=== PATIENT | male | born 1970 | race Caucasian/White ===

== ENCOUNTER 2016-09-29 08:44 | Emergency (ER) | payer MEDICAID ==
--- NOTE | 2016-09-29 09:53 | US ---
CORRECTED ORDER Ultrasound Venous Duplex/Doppler left Leg History: Pain and swelling. Findings: Ultrasound venous duplex and Doppler imaging of the common femoral vein, femoral vein, popliteal vein, calf veins, greater saphenous vein origin, and contralateral common femoral vein demonstrates normal compressibility, color flow, and Doppler flow without deep venous thrombosis. However there is positive intraluminal thrombus distal to the greater saphenous vein origin throughout the greater saphenous vein from the mid thigh through the knee region, consistent with superficial thrombophlebitis. Impression: 1. No deep venous thrombosis left leg. 2. Positive superficial thrombophlebitis in the left greater saphenous vein. Report given to Dr. Garcia at 0950 hour [facility]
--- NOTE | 2016-09-29 10:04 | EDPHY ---
H & P Smoking Status: Current every day smoker Time Seen by Provider: 09/29/16 09:00 HPI/ROS: HPI Lower extremity pain. History of blood clots. 46-year-old male by private vehicle. 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 He has not been on Coumadin for 8 months. He describes the pain as a burning deep ache. He also describes having some associated erythema to the skin over this area. He states also that he recently this morning developed pain in his right medial distal thigh and popliteal area. He also describes this pain is similar to the pain he has had DVTs in the past. ROS: Constitutional: No fever, no chills. No weakness. Eyes: No discharge. No changes in vision. ENT: No sore throat. No nasal congestion or rhinorrhea. Respiratory: No cough. No shortness of breath. Cardiac: No chest pain, no palpitations. Gastrointestinal: No abdominal pain, no vomiting, no diarrhea. Genitourinary: No hematuria. No dysuria or increased frequency with urination. Musculoskeletal: No back pain. No neck pain. As above. Skin: No rashes. Neurological: No headache. No focal weakness or altered sensation. Past medical history: DVTs, multiple orthopedic surgeries, appendectomy. Social history: Here by himself. Physical Exam: General Appearance: Alert, no distress. This patient is responding to questions appropriately and in full sentences. This patient appears well- hydrated and well-nourished. Eyes: Pupils equal and round no pallor or injection. No lid edema, erythema or injection. Left lower extremity exam: Significant for an area of erythema involving the medial aspect of his left mid thigh. There is no significant associated warmth. It is blanching. It is tender on palpation. No palpable cords or masses. The left lower extremity is neurovascularly intact. His muscle compartments of the left thigh are soft. There is no significant asymmetric swelling when compared to the right lower extremity. Right lower extremity exam: He has vague tenderness over the medial aspect of the right distal thigh, medial aspect of the knee and proximal medial calf musculature. No masses. No discoloration. The right lower extremity is neurovascularly intact. Respiratory: There are no retractions, lungs are clear to auscultation with good air movement bilaterally. Cardiovascular: Regular rate and rhythm. No murmur. Gastrointestinal: Abdomen is soft and nontender, no masses, bowel sounds normal. No focal tenderness at McBurney's point. No Blanco sign. Neurological: Motor sensory function is grossly intact. Cranial nerves are normal. Gait is normal. Skin: Warm and dry, no rashes. Musculoskeletal: Neck is supple and nontender. Extremities are symmetrical. All joints range without pain or impingement. Psychiatric: No agitation. No depression. Database: EKG: Imaging: Right lower extremity ultrasound: No DVT but significant for superficial thrombophlebitis right GS V, not as great as the left lower extremity. Results were discussed with staff radiologist Dr. Rogelio Alexander. Left lower extremity ultrasound: No DVT but positive for superficial thrombo phlebitis left GSV. Results were discussed with staff radiologist Dr. Rogelio Alexander. Procedures: Emergency department course: After my evaluation, patient was sent for ultrasound of the left lower extremity. On re-evaluation and after review of left lower extremity ultrasound , explained that his right lower extremity was bothering him also as noted above. Right lower extremity ultrasound will be reviewed. Patient will be started on ibuprofen for treatment of thrombophlebitis of the left lower extremity. 11:30 a.m., patient re-evaluated. Results of both lower extremity ultrasounds discussed. Treatment options discussed. We will start him on high-dose ibuprofen to be given over the next 7-10 days. Plan will be to have him follow up with his primary care physician for re-evaluation and consideration of novel anticoagulant therapy. He is in agreement with this plan. Return to emergency department precautions have been discussed with him. All of his questions were answered. He was discharged in good condition with his father. Differential Diagnosis: The differential diagnosis on this patient includes but is not limited to DVT, thrombophlebitis, cellulitis. This represents a partial list of diagnoses considered. These considerations are based on history, physical exam, past history, reassessment and diagnostic testing. (Jenifer Garcia) Constitutional: Initial Vital Signs Temperature (C) 36.7 C 09/29/16 08:45 Heart Rate 102 H 09/29/16 08:45 Respiratory Rate 18 09/29/16 08:45 Blood Pressure 164/123 H 09/29/16 08:45 O2 Sat (%) 96 09/29/16 08:45 O2 Delivery Mode Room Air Allergies/Adverse Reactions: No Known Allergies Allergy (Unverified 09/29/16 08:45) Home Medications: Medication Instructions Recorded Cozaar 09/29/16 Di Something 09/29/16 Toprol Xl 100 mg (*) 09/29/16 Medical Decision Making Other Provider: This pt's chart is in my sign queue, but I was not involved in the care of this pt. (Nila Carrasquillo) - Data Points Medications Given: Discontinued Medications Ibuprofen (Motrin) 800 mg PO EDNOW ONE Stop: 09/29/16 10:46 Last Admin: 09/29/16 11:00 Dose: 800 mg Departure - Departure Disposition: Home, Routine, Self-Care Clinical Impression: Thrombophlebitis Condition: Good Instructions: Superficial Thrombophlebitis (ED) Additional Instructions: Read and follow provided instructions. Follow-up with your primary care physician in 1-2 days for re-evaluation and consideration of novel anticoagulant therapy. It is very important you follow up with your primary care physician to discuss all options of treatment available and to be re-evaluated. Ibuprofen dosin mg every 6 hours with meals for the next 7-10 days. Return to the emergency department for worsening symptoms, worsening pain, worsening swelling, fever, shortness of breath, worsening discoloration or other serious concerns. Referrals: James Mckeon MD [Medical Doctor] - As per Instructions Marcus Castillo MD [Medical Doctor] - As per Instructions
[2016-09-29] MEDS ORDERED: IBUPROFEN 200 MG TAB PO ONE (10:45)
[2016-09-29 11:46] VITALS: BP 143/91; PULSE 84; RESP 17; TEMP 98.8; O2SAT 94
== END 2016-09-29 11:45 | disposition home or self-care (01) ==
DX: I80.292 Phlebitis and thrombophlebitis of other deep vessels of left lower extremity (principal); F17.200 Nicotine dependence, unspecified, uncomplicated

== ENCOUNTER 2017-09-02 17:07 | Inpatient (IN) | payer MEDICAID ==
[~2017-09-02 17:07] MED LIST: OLANZapine 10 MG/2 ML VIAL ONE
[2017-09-02] MEDS ORDERED: HALOPERIDOL LACT 5 MG/ML INJ IVP ONE (17:10)
[2017-09-02 17:36] LABS: % IMMATURE GRANULYOCYTES 0.2 % (0.0-1.1); ABSOLUTE IMMATURE GRANULOCYTES 0.02 10^3/uL (0.00-0.10); ADD DIFF? NO; ADD MORPH? NO; ADD SCAN? NO; ATYPICAL LYMPHOCYTE FLAG 10 (0-99); FRAGMENT RBC FLAG 0 (0-99); HEMATOCRIT 57.1 % (40.0-51.0); LEFT SHIFT FLG 0 (0-99); LIPEMIA HEMOLYSIS FLAG 90 (0-99); MEAN CELL HEMOGLOBIN 35.4 pg (27.9-34.1); MEAN CELL HEMOGLOBIN CONCENTR. 35.9 g/dL (32.4-36.7); MEAN CELL VOLUME 98.6 fL (81.5-99.8); MEAN PLATELET VOLUME 9.6 fL (8.7-11.7); PLATELET CLUMPS FLAG 0 (0-99); PLATELET COUNT 206 10^3/uL (150-400); RED BLOOD CELL COUNT 5.79 10^6/uL (4.40-6.38); RED CELL DISTRIBUTION WIDTH 14.2 % (11.5-15.2)
[2017-09-02 17:42] LABS: HEMOGLOBIN 20.5 g/dL (13.7-17.5)
[2017-09-02 17:47] LABS: ALANINE AMINOTRANSFERASE 62 IU/L (21-72); ALBUMIN 4.5 g/dL (3.5-5.0); ALKALINE PHOSPHATASE 84 IU/L (38-126); ANION GAP 21 mEq/L (8-16); ASPARTATE AMINOTRANSFERASE 62 IU/L (17-59); BILIRUBIN,TOTAL 0.3 mg/dL (0.1-1.4); CALCIUM 9.2 mg/dL (8.5-10.4); CARBON DIOXIDE 20 mEq/l (22-31); CHLORIDE 111 mEq/L (97-110); CREATININE 1.1 mg/dL (0.7-1.3); GLOMERULAR FILTRATION RATE > 60; GLUCOSE 125 mg/dL (70-100); POTASSIUM 4.3 mEq/L (3.5-5.2); SODIUM 152 mEq/L (134-144)
[2017-09-02 17:59] LABS: ETHANOL SERUM 317 mg/dL (0-10)
--- NOTE | 2017-09-02 18:11 | EDPHY ---
H & P Stated Complaint: M1, ETOH and restrained, self inflicted lac to L forearm Source: Patient Exam Limitations: Intoxication - Personal History Current Tetanus/Diphtheria Vaccine: Unsure - Medical/Surgical History Hx Asthma: No Hx Chronic Respiratory Disease: No Hx Diabetes: No Hx Alcoholism: No Other PMH: PMH- HTN, DVT. PSH- ORTHO, APPY, EAR TUBES, - Social History Smoking Status: Current every day smoker HPI/ROS: HPI: This is a 47-year-old male who presents with Chief Complaint: Alcohol intoxication and laceration of left forearm Location: Body Quality: Alcohol intoxication Duration: Today Signs and Symptoms:+ suicidal ideation, + combativeness, no hallucinations, no paranoia Timing: Sudden Severity: Severe Context: Patient presents via [facility] police and EMS for alcohol intoxication and using a 10 blade scalpel to intentionally cut his left forearm to cause physical harm. Please were called to the patient's place of residence by his roommate. Patient's roommate and brother were and his resident trying to talk him down and physically trying to stop and from further harming himself. Please had to tackle him and restrain him to prevent him from causing further harm to himself. On route EMS gave 10 mg of IM Versed. Patient is combative, physically aggressive and verbally yelling. He admits to wanting to kill myself and no longer wanting to live. He admits to drinking large amounts of alcohol today. He has a history of PTSD and DVT. Denies being on any blood thinners at this time. Right-hand dominant. Unsure of last tetanus shot. Modifying Factors: See above Comment: ROS: Limited due to intoxication MEDICAL/SURGICAL/SOCIAL HISTORY: PMH- HTN, DVT PSH- ORTHO, APPY, EAR TUBES Social history: Lives with a roommate. CONSTITUTIONAL: Combative, intoxicated, smells heavily of alcohol, obese adult white male, awake and alert, no obvious distress HEENT: Atraumatic and normocephalic, PERRL, EOMI. no globe entrapment, no raccoon eyes. no [place] signs.Tympanic membranes clear. No tympanic membrane rupture. Nares patent; no septal hematoma. Oropharynx clear, no exudate and moist pink mucosa. No malocclusion. no dental trauma. Airway patent. No lymphadenopathy. NECK: supple, no midline tenderness, flexion 45 degrees, extension 45 degrees, right and left lateral flexion 45 degrees. No meningismus. Cardiovascular: Normal S1/S2, regular rate, regular rhythm, without murmur rub or gallop. PULMONARY/CHEST: Symmetrical and nontender. no crepitus. Clear to auscultation bilaterally. Good air movement. No accessory muscle usage. ABDOMEN: Soft, nondistended, nontender, no ecchymosis, no rebound, no guarding , no peritoneal signs, no masses or organomegaly. No CVAT. PELVIC: no pain with rocking; bilateral hips flexion 125 degrees, extension 30 degrees, with no pain internal rotation and no pain external rotation. BACK: No midline tenderness, no paraspinous spasm, deep tendon reflexes 2/2, no pain with straight leg raise EXTREMITIES: 2/2 radial pulses, 14 cm deep, vertical, laceration from left wrist to mid forearm; volar aspect; muscle exposed. Three small no deformities , no clubbing, no cyanosis or edema. NEUROLOGICAL: no focal neuro deficits. GCS 15. SKIN: Warm and dry, multiple tattoos no erythema. no rash. Good capillary refill. PSYCH: Mumbling, shouting profanities, disorganized thought process, poor insight and judgment, no auditory and visual command hallucinations, + suicidal ideation with attempt, no homicidal ideation, not paranoid ([place]) Constitutional: Initial Vital Signs Temperature (C) 36.6 C 09/02/17 17:10 Heart Rate 130 H 09/02/17 17:10 Respiratory Rate 20 09/02/17 17:10 Blood Pressure 126/87 H 09/02/17 17:10 O2 Sat (%) 99 09/02/17 17:10 O2 Delivery Mode Room Air O2 (L/minute) 3 Allergies/Adverse Reactions: No Known Allergies Allergy (Unverified 09/29/16 08:45) Home Medications: Medication Instructions Recorded Cozaar 09/29/16 Di Something 09/29/16 Toprol Xl 100 mg (*) 09/29/16 Medical Decision Making Procedures: Procedure: Laceration repair. Verbal consent was obtained from the patient. The 14 cm deep, complex laceration on the left forearm was anesthetized in the usual fashion. The wound was irrigated, draped and explored to its base with a gloved finger. There were no deep structures involved. No tendon injury was identified. The wound repair was 2 layer closure; Vicryl used for deep layer and #21, 4-0 Prolene on top layer. Good hemostasis was achieved and patient tolerated procedure well. The procedure was performed by myself. (Kaitlyn Kumar) ED Course/Re-evaluation: This patient was seen and examined by me on arrival. He presents with extreme combativeness and agitation. He received Versed 10 mg IM prior to arrival. Haldol 10 mg IV given. He was placed in 4 point restraints. He gradually calmed down over approximately 10 min. He maintained his airway and oxygen saturation throughout. Chest CTA, CV regular tachycardia. I agree with the assessment and plan. (Nila Carrasquillo) Labs, UDS ordered [facility] police placed M1 on patient as he is found to be gravely disabled and a danger to himself and others. I agree with this assessment. Placed in 4 point restraints for the safety of himself and others as patient was physically aggressive, trying to lunge and physically harm staff, agitated. He was given 10 mg IV Haldol upon arrival per Dr. Carrasquillo. He immediately calm down. Complex laceration was repaired, clean sterile dressing applied. ETOH 317 2054: Due to lab abnormalities upon arrival; repeat CBC and CMP ordered. Patient was re-evaluated and more calm and cooperative. 2149: Reassessed patient. Sleeping soundly. Repeat labs show improvement. UDS is positive for marijuana and cocaine. 0008: End of shift. Signed over to Dr. Rand. Pending mental health evaluation and final disposition. Patient will need his sutures removed in 10- 14 days. (Kaitlyn Kumar) Differential Diagnosis: Differential diagnosis includes but is not limited to functional in situational depression, suicidal ideation, schizoaffective disorder, bipolar disorder, alcohol intoxication, delirium. (Kaitlyn Kumar) - Data Points Laboratory Results: Laboratory Results 09/02/17 20:57 09/02/17 20:57 09/02/17 09/02/17 09/02/17 21:09 20:57 20:57 WBC 6.04 10^3/uL 10^3/uL (3.80-9.50) RBC 5.21 10^6/uL 10^6/uL (4.40-6.38) Hgb 18.3 g/dL H g/dL (13.7-17.5) Hct 51.8 % H % (40.0-51.0) MCV 99.4 fL fL (81.5-99.8) MCH 35.1 pg H pg (27.9-34.1) MCHC 35.3 g/dL g/dL (32.4-36.7) RDW 14.2 % % (11.5-15.2) Plt Count 154 10^3/uL D 10^3/uL (150-400) MPV 9.7 fL fL (8.7-11.7) Neut % (Auto) 47.4 % % (39.3-74.2) Lymph % (Auto) 43.4 % % (15.0-45.0) Cowley % (Auto) 7.0 % % (4.5-13.0) Eos % (Auto) 1.2 % % (0.6-7.6) Baso % (Auto) 0.8 % % (0.3-1.7) Nucleat RBC Rel Count 0.0 % % (0.0-0.2) Absolute Neuts (auto) 2.87 10^3/uL 10^3/uL (1.70-6.50) Absolute Lymphs (auto) 2.62 10^3/uL 10^3/uL (1.00-3.00) Absolute Monos (auto) 0.42 10^3/uL 10^3/uL (0.30-0.80) Absolute Eos (auto) 0.07 10^3/uL 10^3/uL (0.03-0.40) Absolute Basos (auto) 0.05 10^3/uL 10^3/uL (0.02-0.10) Absolute Nucleated RBC 0.00 10^3/uL 10^3/uL (0-0.01) Immature Gran % 0.2 % % (0.0-1.1) Immature Gran # 0.01 10^3/uL 10^3/uL (0.00-0.10) PT INR Sodium 147 mEq/L H mEq/L (134-144) Potassium 4.1 mEq/L mEq/L (3.5-5.2) Chloride 111 mEq/L H mEq/L (97-110) Carbon Dioxide 19 mEq/l L mEq/l (22-31) Anion Gap 17 mEq/L H mEq/L (8-16) BUN 5 mg/dL L mg/dL (7-23) Creatinine 0.9 mg/dL mg/dL (0.7-1.3) Estimated GFR > 60 Glucose 111 mg/dL H mg/dL (70-100) Calcium 8.2 mg/dL L mg/dL (8.5-10.4) Total Bilirubin 0.2 mg/dL mg/dL (0.1-1.4) AST 50 IU/L IU/L (17-59) ALT 52 IU/L IU/L (21-72) Alkaline Phosphatase 67 IU/L IU/L (38-126) Total Protein 6.4 g/dL g/dL (6.3-8.2) Albumin 3.6 g/dL g/dL (3.5-5.0) Urine Opiates Screen NEGATIVE (NEGATIVE) Urine Barbiturates NEGATIVE (NEGATIVE) Ur Phencyclidine Scrn NEGATIVE (NEGATIVE) Ur Amphetamine Screen NEGATIVE (NEGATIVE) U Benzodiazepines Scrn NEGATIVE (NEGATIVE) Urine Cocaine Screen NON-NEGATIVE H (NEGATIVE) U Marijuana (THC) Screen NON-NEGATIVE H (NEGATIVE) Ethyl Alcohol 09/02/17 09/02/17 09/02/17 18:55 17:25 17:25 WBC 9.01 10^3/uL 10^3/uL (3.80-9.50) RBC 5.79 10^6/uL 10^6/uL (4.40-6.38) Hgb 20.5 g/dL H* g/dL (13.7-17.5) Hct 57.1 % H % (40.0-51.0) MCV 98.6 fL fL (81.5-99.8) MCH 35.4 pg H pg (27.9-34.1) MCHC 35.9 g/dL g/dL (32.4-36.7) RDW 14.2 % % (11.5-15.2) Plt Count 206 10^3/uL 10^3/uL (150-400) MPV 9.6 fL fL (8.7-11.7) Neut % (Auto) 30.0 % L % (39.3-74.2) Lymph % (Auto) 58.4 % H % (15.0-45.0) Cowley % (Auto) 8.3 % % (4.5-13.0) Eos % (Auto) 1.9 % % (0.6-7.6) Baso % (Auto) 1.2 % % (0.3-1.7) Nucleat RBC Rel Count 0.0 % % (0.0-0.2) Absolute Neuts (auto) 2.70 10^3/uL 10^3/uL (1.70-6.50) Absolute Lymphs (auto) 5.26 10^3/uL H 10^3/uL (1.00-3.00) Absolute Monos (auto) 0.75 10^3/uL 10^3/uL (0.30-0.80) Absolute Eos (auto) 0.17 10^3/uL 10^3/uL (0.03-0.40) Absolute Basos (auto) 0.11 10^3/uL H 10^3/uL (0.02-0.10) Absolute Nucleated RBC 0.00 10^3/uL 10^3/uL (0-0.01) Immature Gran % 0.2 % % (0.0-1.1) Immature Gran # 0.02 10^3/uL 10^3/uL (0.00-0.10) PT 14.0 SEC SEC (12.0-15.0) INR 1.06 (0.83-1.16) Sodium 152 mEq/L H mEq/L (134-144) Potassium 4.3 mEq/L mEq/L (3.5-5.2) Chloride 111 mEq/L H mEq/L (97-110) Carbon Dioxide 20 mEq/l L mEq/l (22-31) Anion Gap 21 mEq/L H mEq/L (8-16) BUN 5 mg/dL L mg/dL (7-23) Creatinine 1.1 mg/dL mg/dL (0.7-1.3) Estimated GFR > 60 Glucose 125 mg/dL H mg/dL (70-100) Calcium 9.2 mg/dL mg/dL (8.5-10.4) Total Bilirubin 0.3 mg/dL mg/dL (0.1-1.4) AST 62 IU/L H IU/L (17-59) ALT 62 IU/L IU/L (21-72) Alkaline Phosphatase 84 IU/L IU/L (38-126) Total Protein 8.0 g/dL g/dL (6.3-8.2) Albumin 4.5 g/dL g/dL (3.5-5.0) Urine Opiates Screen Urine Barbiturates Ur Phencyclidine Scrn Ur Amphetamine Screen U Benzodiazepines Scrn Urine Cocaine Screen U Marijuana (THC) Screen Ethyl Alcohol 317 mg/dL H mg/dL (0-10) Medications Given: Discontinued Medications Diphtheria/Tetanus/Acell Pertussis (Boostrix) 0.5 ml IM .ONCE ONE Stop: 09/02/17 18:30 Last Admin: 09/02/17 18:46 Dose: 0.5 ml Haloperidol Lactate (Haldol Injection) 10 mg IVP EDNOW ONE Stop: 09/02/17 17:11 Last Admin: 09/02/17 17:10 Dose: 10 mg Departure - Departure Clinical Impression: Suicide attempt by method other than substance overdose, Polysubstance abuse Alcohol intoxication Qualifiers: Complication of substance-induced condition: uncomplicated Qualified Code(s): F10.920 - Alcohol use, unspecified with intoxication, uncomplicated Laceration of forearm, left, complicated Qualifiers: Encounter type: initial encounter Qualified Code(s): S51.812A - Laceration without foreign body of left forearm, initial encounter Condition: Fair
[2017-09-02] MEDS ORDERED: TDAP ADULT 0.5 ML INJ (BOOSTRIX) IM ONE (18:29)
[2017-09-02 19:18] LABS: INR 1.06 (0.83-1.16)
[2017-09-02 21:06] LABS: % IMMATURE GRANULYOCYTES 0.2 % (0.0-1.1); ABSOLUTE IMMATURE GRANULOCYTES 0.01 10^3/uL (0.00-0.10); ADD DIFF? NO; ADD MORPH? NO; ADD SCAN? NO; ATYPICAL LYMPHOCYTE FLAG 0 (0-99); FRAGMENT RBC FLAG 0 (0-99); HEMATOCRIT 51.8 % (40.0-51.0); HEMOGLOBIN 18.3 g/dL (13.7-17.5); LEFT SHIFT FLG 0 (0-99); LIPEMIA HEMOLYSIS FLAG 90 (0-99); MEAN CELL HEMOGLOBIN 35.1 pg (27.9-34.1); MEAN CELL HEMOGLOBIN CONCENTR. 35.3 g/dL (32.4-36.7); MEAN CELL VOLUME 99.4 fL (81.5-99.8); MEAN PLATELET VOLUME 9.7 fL (8.7-11.7); PLATELET CLUMPS FLAG 0 (0-99); PLATELET COUNT 154 10^3/uL (150-400); RED BLOOD CELL COUNT 5.21 10^6/uL (4.40-6.38); RED CELL DISTRIBUTION WIDTH 14.2 % (11.5-15.2)
[2017-09-02 21:22] LABS: ALANINE AMINOTRANSFERASE 52 IU/L (21-72); ALBUMIN 3.6 g/dL (3.5-5.0); ALKALINE PHOSPHATASE 67 IU/L (38-126); ANION GAP 17 mEq/L (8-16); ASPARTATE AMINOTRANSFERASE 50 IU/L (17-59); BILIRUBIN,TOTAL 0.2 mg/dL (0.1-1.4); CALCIUM 8.2 mg/dL (8.5-10.4); CARBON DIOXIDE 19 mEq/l (22-31); CHLORIDE 111 mEq/L (97-110); CREATININE 0.9 mg/dL (0.7-1.3); GLOMERULAR FILTRATION RATE > 60; GLUCOSE 111 mg/dL (70-100); POTASSIUM 4.1 mEq/L (3.5-5.2); SODIUM 147 mEq/L (134-144); TOTAL PROTEIN 6.4 g/dL (6.3-8.2)
[2017-09-03] MEDS ORDERED: LORazepam 1 MG TAB PO ONE (03:13)
[2017-09-03] MEDS ORDERED: IBUPROFEN 600 MG TAB PO ONE (08:52)
[2017-09-03] MEDS ORDERED: chlordiazePOXIDE 25 MG CAP PO ONE (12:55)
[2017-09-03] MEDS ORDERED: THIAMINE HCL 100 MG TAB PO ONE ×2 (12:55→14:11)
[2017-09-03] MEDS ORDERED: chlordiazePOXIDE 25 MG CAP PO PRN (14:11)
[2017-09-03] MEDS ORDERED: MAGNESIUM HYDROXIDE 30 ML UDCUP PO PRN (14:11)
[2017-09-03] MEDS ORDERED: MAG HYDROX/AL HYDROX/SIMETH 30 ML UDCUP PO PRN ×2 (14:11)
[2017-09-03] MEDS ORDERED: NICOTINE POLACRILEX 2 MG GUM B PRN (14:11)
[2017-09-03] MEDS: IBUPROFEN 200 MG TAB PO PRN (17:13)
[2017-09-03] MEDS: OLANZapine DISINTEGR 10 MG TAB PO PRN (18:15)
[2017-09-04] MEDS: IBUPROFEN 200 MG TAB PO PRN ×2 (06:35→12:41)
[2017-09-04] MEDS: THIAMINE HCL 100 MG TAB PO SCH (08:44)
[2017-09-04] MEDS: MULTIVITAMINS 1 EACH TAB PO SCH (08:44)
[2017-09-04] MEDS: FOLIC ACID 1 MG TAB PO SCH (08:44)
[2017-09-04] MEDS: SERTRALINE HCL 50 MG TAB PO SCH (09:17)
--- NOTE | 2017-09-04 09:50 | BAPA ---
[f rep st] ADMISSION PSYCHIATRIC ASSESSMENT IDENTIFICATION: This is a 47-year-old white male who lives with a roommate in a trailer here in [place]. He has 2 sons that live with his ex- in [place]. The patient is currently unemployed and receiving short-term disability from a former employer. The patient is on probation in [facility] for 2 DUIs. CHIEF COMPLAINT: "I feel much better today." HISTORY OF PRESENT ILLNESS: The patient reports a history of recurrent depression, including anhedonia, low energy, low activity, irritability, and feeling hopeless and overwhelmed for many years. He reports that he took Zoloft and Wellbutrin for approximately 3 years, but stopped taking these medications about 4 months ago. He reports that since then he has been more depressed, hopeless, down, and sad. He reports that he had been sober from alcohol for 3-4 months, but then relapsed on alcohol about a month ago. He says he also smokes cannabis daily for chronic shoulder pain. He reports, in the past month, binge drinking 3-4 nights a week. On September 02, 2017, he had been drinking and cut his left arm with a razor blade while having suicidal thoughts. He did this at home and this was observed by his roommate. His roommate called paramedics and he was taken to the emergency department. In the emergency department the patient was on an M1 hold. He was intoxicated with alcohol, combative, required restraints, and received IM Haldol to calm down. He received 21 sutures in his left arm. He had a blood alcohol level in the emergency department of 317. The patient's urine drug screen was positive for cannabis and cocaine. The patient in the emergency room denied any cocaine use, but reported daily cannabis use. After the patient sobered up in the emergency department, he was evaluated by the [facility] team. He reported continued depression with suicidal thoughts and was then admitted to the inpatient psychiatric unit yesterday, September 03, 2017. In the emergency department the patient had borderline hypertension, but did not score on the CIWA scale. He was given thiamine, 1 dose of Ativan, and 1 dose of Librium 25 mg for anxiety and hypertension. Otherwise, he denied symptoms of alcohol withdrawal. The patient reports, currently this morning, feeling much improved. He reports that he does not feel suicidal and does not feel that he is an imminent danger to himself. He reports that his depression is chronic, but it was worsened on September 02, 2017, following alcohol bingeing. He reports that he does not have any current plan to hurt himself. He denies any plans to hurt others. He denies paranoia or hallucinations. He denies any history of sustained hyperactivity, sustained decreased need for sleep, racing thoughts, or severe agitation when sober. He reports that he does want to get mental health treatment after discharge and he wants to restart his antidepressants. He reports that he wants to live for his sons who live in [place]. He also wants to live for his brother, sister, and parents who live in [place]. He also reports that he wants to live so that he can attend an SSI hearing on Thursday, September 07, 2017, for his medical disability related to his shoulder surgeries. The patient denies headache, visual changes, or weakness in his arms or legs. He reports some pain around the laceration on his left arm, but he denies any drainage from it. He denies weakness in his hands or legs. He denies feeling unsteady with his ambulation. He denies nausea, vomiting, diarrhea, constipation, or difficulty urinating. He denies hypersensitivity to sound or light. He denies feeling confused or anxious right now. PAST PSYCHIATRIC HISTORY: The patient reports taking Wellbutrin and Zoloft for approximately 3 years, but stopped taking these medications 4 months ago. He denies prior suicide attempts. He denies past psychiatric hospitalizations. He denies any history of violence toward others. He reports 2 past arrests for DUIs, which were alcohol-related. He denies any arrests for violent crimes. He reports that he is currently on probation in [facility] related to the DUIs. He reports taking Antabuse in the past, but having nausea from this medication. He reports daily cannabis use for the past year related to chronic pain in his shoulders. He denies cocaine or stimulant abuse, even though cocaine was found in his urine in the emergency department. [place] he had opioids and sedative prescribed in the past, last March 2017. MEDICATION: He reports he was not taking medications regularly prior to admission. ALLERGIES: No known drug allergies. PAST MEDICAL HISTORY: DVT in his left lower extremity and reports that he was told by previous physicians that he does not need to take aspirin or blood thinners for this as this was over a year ago, history of borderline hypertension and has taken medications for hypertension in the past, but is unsure of the names or dosages, history of appendectomy, and surgeries on both of his shoulders. On September 02, 2017, he had a self-inflicted laceration on his left upper extremity requiring 21 sutures. The patient denies any history of traumatic brain injuries, seizures, or concussions. SOCIAL HISTORY: The patient reports that he was raised by his parents without abuse or neglect. He reports that his childhood was somewhat chaotic as his father changed jobs and the family moved multiple times throughout his childhood. He said he dropped out of 10th grade because he did not like school. 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 He reports that he did this work for many years, but became disabled due to multiple shoulder surgeries and chronic shoulder pain. The patient is and his ex- lives in [place] with his sons, ages 15 and 19. The patient currently lives in a trailer with his roommate Timothy. He reports that he has been getting medical disability payments from his former employer and has an upcoming hearing with social security disability regarding chronic medical disability. FAMILY HISTORY: He reports that his parents are alive and well and his siblings are alive and well. He denies any family history of suicide, substance abuse, or severe mental illness. PHYSICAL EXAMINATION: VITAL SIGNS: Blood pressure is 142/99, heart rate 72, respiratory rate 12, and pulse ox is 98% on room air. MENTAL STATUS EXAM: He is an alert and overweight white male in no acute distress. He is ambulatory, cooperative, and pleasant. He does not have any focal weakness. His speech is regular rate and rhythm with a soft voice. His mood is "better." His affect is restricted. His thoughts are organized. He denies any thoughts to hurt himself or others. He denies any auditory hallucinations or paranoia. He denies any perceptual disturbance. He denies feeling anxious or irritable. His memory is fair. His insight is fair. His judgment is questionable. LABORATORY DATA: In the emergency department the patient had a blood alcohol level of 317 on September 02, 2017 at 1525. His urine tox screen was positive for cannabis and marijuana. His initial sodium was 152, but that improved to 147 in the emergency room on September 02, 2017. On September 02, 2017, he had a potassium of 4.1, creatinine 0.9, glucose 111, and calcium of 8.2. AST was 50, ALT was 52, and alkaline phosphatase was 67. His PT was 14 and INR was 1.06. His white blood cell count is 6.0, hemoglobin is 18.3, and platelet count is 154. In the computer system for old visits, the patient had a TSH of 3.4 on October 01, 2016. His HDL in September of 2016 was 52, LDL was 105, and triglycerides 264. DIAGNOSES: 1. Major depressive disorder, recurrent and severe without psychotic features. 2. Suicidal ideation. 3. Alcohol induced mood disorder with depressive features. 4. Alcohol use disorder, severe. 5. Cannabis use disorder, severe. 6. Legal stressors - probation 7. Financial Stressors 8. Hypertension 9. Self-inflicted laceration to left upper extremity with sutures 10. Overweight ASSESSMENT: This patient has chronic major depressive disorder symptoms and had been off his antidepressants for 3 months. He reports that he had been sober from alcohol for 3-4 months and then relapsed on alcohol a month ago. He has been binge drinking several days a week for the past month. He has also been using cannabis daily for chronic pain. The patient has a large self- inflicted laceration on his left upper extremity requiring 21 sutures while intoxicated with alcohol. The patient is now sober and reports chronic depressive symptoms, but denies further suicidal ideation. The patient has a significant history of alcohol use disorder with a history of 2 DUIs as well as relationship problems with his ex- related to alcohol. PLAN: 1. The patient is on an M1 hold that expires tomorrow, September 05, 2017 around 1700 hours. The patient reports that he does not want to stay in the hospital, however, considering the severity of his self-inflicted injury and his history of recurrent depression, it is unclear if this is a consistent report. Therefore, the patient will stay in the hospital tonight and be re- evaluated tomorrow to clarify if the patient needs further inpatient psychiatric hospitalization. 2. We will restart the patient's Zoloft 50 mg p.o. every morning. I discussed the risk of nausea, diarrhea, agitation, suicidal thinking, and bipolar symptoms with Zoloft as well as the risk of GI bleed. 3. The patient is agreeable to start naltrexone for alcohol cravings and alcohol use disorder. The patient was given a handout on this medication. We reviewed the risks of blockade of opiate receptors, blockade of opioid medications, and the risk of nausea and hepatitis. We will start 50 mg p.o. every night with food. 4. We will monitor the patient for alcohol withdrawal over the next 24 hours. The patient is currently on the CIWA scale every 4 hours while awake. He received thiamine in the emergency room and will receive thiamine here on the unit daily along with folic acid. If the patient scores above 10 on the CIWA scale, he will receive Librium 25 mg p.r.n. 5. I requested that the career information specialist get release information for the patient's roommate to clarify if the patient has a history of making suicidal statements or self-harming behaviors when he is sober from alcohol. 6. The patient reports that he wants to be discharged prior to his SSI hearing on September 07, 2017 at 11AM in [place]. 7. We will monitor the patient's hypertension on the unit. The patient previously was on high blood pressure medicines, but we will monitor this along with the CIWA rating scale on the unit. Patient will be seen by the hospitalist today. 8. The patient will need to be referred to a primary care doctor to have his sutures removed in 10-14 days and to follow up on his blood pressure. 9. The patient may have borderline hyperglycemia and will need to have his blood sugar rechecked in a month by a primary care provider. 10. The patient is on SP1 suicide precautions on the unit. 11. The patient is overweight and at high risk for sleep apnea. The patient should probably have a sleep study on an outpatient basis after discharge. /[id number]/MODL MTDD
--- NOTE | 2017-09-04 13:51 | BCON ---
[f rep st] BEHAVIORAL HEALTH CONSULTATION INTERNAL MEDICINE CONSULTATION REFERRING PHYSICIAN: SAÚL GILL MD REASON FOR REFERRAL: Medical clearance for inpatient behavioral health stay. HISTORY OF PRESENT ILLNESS: This patient was brought into the emergency department by police. Police had been called by his roommate after he had lacerated his left wrist with a #10 scalpel blade. He was intoxicated and needed to be restrained. In the emergency department, after being treated with midazolam and haloperidol, the laceration was repaired. He was evaluated by the mental health team and admitted for further psychiatric care. He is currently without any acute complaints. He reports that pain in the left forearm is adequately controlled with ibuprofen. PAST MEDICAL HISTORY: 1. Hypertension. 2. Superficial thrombosis of the left calf. 3. Depression. PAST SURGICAL HISTORY: He has had 2 surgeries on his left shoulder and 1 on the right shoulder. MEDICATIONS: Prior to admission, he was not taking any medications. He had previously been on a medication for hypertension, he believes it was Diovan, as well as on medications for depression. ALLERGIES: There are no known drug allergies. SOCIAL HISTORY: He is . His and 2 school-age children live in [place]. He lives with a roommate in a trailer. He has had DUIs x2 and no longer drives and reports that he walks and takes the bus. He is a smoker but not since he came to the emergency department. He has been a polysubstance abuser with toxicology laboratories in the emergency department positive for ethyl alcohol in the serum and cocaine and marijuana in the urine. 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 FAMILY HISTORY: Noncontributory. He denies any significant family medical history. REVIEW OF SYSTEMS: He denies current symptoms of withdrawal, including no sweats, no shakes, no flu-like symptoms. He reports he had been losing some weight and not eating very much because of his depression, but currently has a good appetite. He does not feel acutely thirsty. He is not in pain other than mild in the left forearm, and otherwise a 10-point review of systems is negative. PHYSICAL EXAM: VITAL SIGNS: Blood pressure is 166/107, it has been quite variable; yesterday evening it was 107/70, but overall, other than that single reading, it has always been in the hypertensive range either diastolic or systolic and as high as 183/111. Pulse is 70, respiratory rate is 12, oxygen saturation is 96% on room air, temperature is 36.6 degrees centigrade. His weight is 131.5 kg for a body mass index of 37. GENERAL: This is an obese man, sitting at a table, cooperative and in no acute distress. HEENT: Extraocular movements are intact. Pupils are equal, round, reactive to light. Mucous membranes are moist. He has halitosis. Dentition is in good condition. NECK: Supple. HEART: There is a regular rate and rhythm with no murmurs, rubs, or gallops. LUNGS: Clear to auscultation bilaterally. ABDOMEN: Benign. EXTREMITIES: There is no cyanosis, clubbing, or edema. NEUROLOGIC: He is alert and oriented x3. Cranial nerves 2-12 are grossly intact. There is no focal weakness and sensation is intact to light touch. SKIN: His left forearm has approximately a 25 cm laceration which is sutured, is clean, dry and intact with minimal serous drainage on the bandage. There is no erythema. LABORATORY STUDIES: From the emergency department: CBC was checked twice, the first time there was considerable hemoconcentration with a hemoglobin of 20.5 and hematocrit of 57.1 on 08/23/2017. Several hours later after hydration, his hemoglobin was still elevated at 18.3 with the upper limit of normal being 17.5 , hematocrit of 51.8, with the upper limit of normal being 51. Coagulation studies revealed normal PT and INR. Serum chemistry showed hypernatremia when first tested on 09/02 with a sodium of 152. He had an anion gap of 21 with a low carbon dioxide at 20. Glucose was elevated at 125 but this was likely not fasting. AST was mildly elevated at 62. Several hours later after hydration, his sodium had improved to 147. Anion gap had reduced to 17. Glucose was still high at 111 and otherwise renal function and electrolytes were overall within normal limits. Toxicology screen in the serum revealed an ethyl alcohol level of 317, and the urine was non-negative for cocaine and marijuana but otherwise negative for substances of abuse. ASSESSMENT AND RECOMMENDATIONS: 1. Mental health issues pending further evaluation and management per Psychiatry and the mental health team follow. 2. Self-induced laceration of the left forearm. This has been sutured and appears to be healing well. There is no mention in the emergency department note regarding followup. It is likely the sutures can be removed at approximately 10 days. He should follow up with the primary care provider if he can be established. Otherwise, most likely followup will be at the emergency department for reassessment and suture removal. 3. Hypertension. He most likely was taking valsartan. Given his widely variable blood pressure, which may early on have had a component of either sympathetic discharge from acute distress or alcohol withdrawal and his one reading on the low side of normal, I will start valsartan cautiously at a low dose of 40 mg p.o. b.i.d., monitor blood pressures and adjust as needed. He can also follow up with a primary care provider. 4. Obesity. Advise caution regarding medications which might worsen weight gain, however, his psychosocial stabilization takes first priority at present. 5. Tobacco dependence syndrome. He was encouraged to stop smoking. 6. Alcohol abuse as well as polysubstance abuse. He may benefit from specific substance abuse counseling. 7. Primary prevention. As an obese hypertensive smoker, he is at elevated risk for coronary artery disease. He should see a primary care provider and be sure that his lipids are checked and ensure that his blood sugars are normal. I see no medical contraindications to this patient's continued stay on the inpatient rehabilitation service or to any psychiatric medications or procedures. Thank you very much for including me in the care of this patient and please do not hesitate to contact me or the hospitalist service should there be need for further medical evaluation. /[id number]/MODL MTDD
[2017-09-04] MEDS ORDERED: NALTREXONE HCL 50 MG TAB PO SCH (17:00)
[2017-09-04] MEDS: OLANZapine DISINTEGR 10 MG TAB PO PRN (19:18)
[2017-09-04] MEDS: VALSARTAN 40 MG TAB PO SCH (19:19)
[2017-09-05 05:05] VITALS: TEMP 98.4
[2017-09-05] MEDS: IBUPROFEN 200 MG TAB PO PRN (05:06)
[2017-09-05 08:04] VITALS: PULSE 67
[2017-09-05] MEDS: SERTRALINE HCL 50 MG TAB PO SCH (08:06)
[2017-09-05] MEDS: MULTIVITAMINS 1 EACH TAB PO SCH (08:06)
[2017-09-05] MEDS: VALSARTAN 40 MG TAB PO SCH (08:06)
[2017-09-05] MEDS: FOLIC ACID 1 MG TAB PO SCH (08:06)
[2017-09-05] MEDS: THIAMINE HCL 100 MG TAB PO SCH (08:06)
[2017-09-05 10:02] VITALS: BP 170/104; RESP 18; O2SAT 95
--- NOTE | 2017-09-05 14:27 | BDS ---
[f rep st] BEHAVIORAL HEALTH DISCHARGE SUMMARY REASON FOR ADMISSION: This is a 47-year-old white male, who lives with a roommate. He has 2 sons who live with his ex- in [place]. Patient is currently unemployed and receiving short-term disability. Patient is on probation from [facility] for 2 DUIs. He reports history of recurrent depression, including anhedonia, low energy low activity, irritability, and feeling hopeless and overwhelmed for many years. He reports that he took Zoloft and Wellbutrin for approximately 3 years but stopped taking these medications about 4 months ago. Since then, he says he has been more depressed , hopeless, down, and sad. He had been sober from alcohol for 3-4 months but relapsed about a month ago. He says he also smokes cannabis daily for chronic shoulder pain. He reports in the past month binge drinking 3-4 nights a week. On September 02, he had been drinking and cut his left arm with a razor blade while having suicidal thoughts. He did this at home and was observed by his roommate. His roommate called paramedics, and he was taken to the emergency department. He received 21 sutures in his left arm. He had a blood alcohol level of 317. When Dr. Hernandez met with the patient, the patient reported that he did not feel suicidal and does not feel that he is an imminent danger to himself. He reported that his depression is chronic but is worse when he binge drinks. He reports that he does not have any current plan to harm himself or anyone else. He denies paranoia and hallucinations. He denies any history of bipolar or psychotic symptoms. He reports he does want to get mental health treatment after discharge and wants to restart his antidepressant medications. He also told Dr. Hernandez that he wanted to leave the hospital so that he could attend a Social Security Disability hearing on September 07, for medical disability due to his shoulder injuries. Patient denied any symptoms of withdrawal, including no nausea, vomiting, diarrhea, constipation, difficulty urinating, tremors, night sweats or chills, and no tactile, auditory, or visual hallucinations. ADMITTING DIAGNOSES: 1. Major depressive disorder (recurrent, severe) without psychotic features. 2. Suicidal ideation. 3. Alcohol-induced mood disorder with depressive features. 4. Alcohol-use disorder, severe. 5. Cannabis-use disorder, severe. 6. Psychosocial stressors include legal issues on probation, 2 previous DUI's, financial stressors, hypertension, obesity, self-inflicted laceration to left upper extremity with sutures. Admission physical examination was done by Dr. Wayne Sanchez. Please see his H and P for details. Admission labs were done in the [facility] ED. His BAL was 317 on September 02 at 1525. His urine tox screen was positive for cocaine and marijuana. His initial sodium was 152 but then improved to 147. In the ED, he had potassium of 4.1, creatinine 0.9, glucose 111, calcium 8.2. AST was 50, ALT was 52, alkaline phosphatase was 67. PT was 14, INR was 1.06. White cell count was 6, hemoglobin 18.3, platelet count 154. HOSPITAL COURSE: The patient was admitted to [facility] Inpatient Unit he was placed on CIWA protocol to monitor for alcohol withdrawal. He was administered folic acid, thiamine, and multivitamin. He was restarted on his Zoloft at 50 mg daily. He was also started on naltrexone, to which he gave informed consent, 50 mg daily, and he was prescribed Diovan for dyslipidemia. He had been taking valsartan in the past, and Dr. Sanchez, who is the hospitalist who saw him on 09/04/2017, decided to restart valsartan at a low dose of 40 mg p.o. twice daily, monitor his blood pressure, and have it adjusted on an outpatient basis by his primary care provider. When this MD met with the patient, he continued to deny any thoughts, plans, or intent to hurt himself as he had done since admission. When Dr. Hernandez first saw him, he said that since restarting his Zoloft he felt "much better." He denied feeling depressed or hopeless. He said that he was feeling more positive and optimistic about the future. He was looking forward to going and spending the holidays with his parents and his brother in [place]. He said that he leaves on Thursday, 09/09, and returns on September 23. He said that he had contacted [facility] yesterday to schedule an appointment, but they said they would not be able to make any appointments until after September 16 for sometime in September. So, he said that he would call them from [place] and schedule his first intake appointment with [facility] as soon as possible. This MD met with the patient with life care planner, Sara, who also referred the patient to the [facility] if he needed to get into to see a prescriber sooner than an [facility], so that he could have his prescriptions renewed and did not stop taking his Zoloft. Patient is currently getting outpatient therapy through [facility] in [facility], where he is on probation for his DUI that he had in 2014. He said he started doing twice a week substance-use classes in 2015; he does them here in [place] through the [facility] on [address]. He says that he goes to class 2 hours a week (he has 32 more weeks to complete), and that he also sees an individual therapist who works with the [facility], named David Rodríguez. He states that he started seeing her about a month ago. He sees her once a week for about an hour, but says that he has also been in communication with her via text and phone messages. Patient states that he wants to leave the hospital as soon as possible; does not want to sign himself in voluntarily because he says that he needs to go home and check his messages on his phone, because he is supposed to be getting paperwork together for his manager applied prior to his disability hearing on Thursday at 10: 30 a.m., which is in [place]. He has to ride the bus down there. He says that because his cell phone has been at home, he has not been able to check it while he is in the hospital, and he is getting increasingly nervous about missing phone calls from his manager applied. He says that "I know why this happened," pointing at the laceration and sutures on his arm, and says "this is not going to ever happen again." He says "this is the first time I ever did anything like this." Patient says "I was irritated and upset" because he was not able to see his children. He says "not being able to see my kids at [place] is really hard." He says "if I hadn't been drunk, I would never have done this." He says that he does not plan to relapse anymore, and that he is "done with drinking." He does not feel depressed when he is not drinking, and he says he does not have thoughts about suicide except when he is using alcohol, so that his plan to stay sober is to follow his safety plan, which includes attending an AA meeting on Thursday and going to [facility] on Thursday. He says that he is pretty sure that he can get an appointment with David Rodríguez first thing Thursday, his individual therapist; so he plans to have 3 individual or group appointments now between the time he discharges and the time he gets on the plane to go to [place]. He says it is going to "be really good to be with my family" during the holidays, which are difficult times for him. He recognizes that this is a trigger, and he says that he has "put a plan in place " so that he does not spend the holidays alone. Patient states that he will follow up with [facility] if necessary to bridge him until his first appointment with [facility], and that he will follow up with [facility] to get a prescriber. He does not want to stop taking the Zoloft like he did before, because "that really messed with my mind." He states that he will continue on the Zoloft and will take the medications that he is given at discharge and then follow up with either the [facility] or at [facility] at the 1st available appointment, and he will continue to go to his intervention substance use groups and continue to see his individual therapist, Kamla Rodríguez, once a week. CONDITION AT DISCHARGE: Patient is stable. His affect is euthymic, stable, and inappropriate. He denies any thoughts, plans, or intent to hurt himself or anyone else. He is committed to completing his substance-use treatment, and to getting an outpatient prescriber and staying on medication, DISCHARGE MEDICATIONS: Include Zoloft 50 mg p.o. daily, naltrexone 50 mg p.o. daily, and valsartan 40 mg p.o. b.i.d. He was given a 1-month supply of all those medications with no refills. DISCHARGE DIAGNOSES: 1. Major depressive disorder (recurrent, severe) without psychotic features. 2. Alcohol-induced mood disorder with depressive features. 3. Alcohol-use disorder, severe. 4. Cannabis-use disorder, severe. 5. Psychosocial stressors include legal issues, financial stressors, hypertension, obesity, status post self-inflicted laceration on left upper extremity. DISPOSITION: Patient will be converted from a mental health hold to voluntary status as he does not meet criteria to be involuntary as he does not pose a danger to himself or others and is not gravely disabled. Patient will be discharged home. FOLLOWUP: Patient has an intervention substance use group on Thursday night. Patient was given referrals for local AA groups by the life care planner, Sara. He says that he will attend group on Thursday, Thursday, and Thursday. He says that he will call his individual therapist, Kamla Rodríguez this weekend and is expecting to get in to see her on Thursday. Patient states that he will leave for [place] on Thursday, the , and that he will call from [place] on the , which is the 1st day the P said they would be able to offer him an appointment in September. LEGAL COURSE: Patient was converted to voluntary status prior to the expiration of his M1 hold. /[id number]/MODL MTDD
== END 2017-09-05 13:46 | disposition home or self-care (01) | DRG 885 ==
LOC: EDUNIT# → BBEH 09-03 16:10
PROVIDERS: ATTEND Psychiatry & Neurology Psychiatry
DX: F33.2 Major depressive disorder, recurrent severe without psychotic features (principal); F10.14 Alcohol abuse with alcohol-induced mood disorder; F12.10 Cannabis abuse, uncomplicated; Z73.3 Stress, not elsewhere classified; I10 Essential (primary) hypertension; E66.09 Other obesity due to excess calories; Z68.37 Body mass index [BMI] 37.0-37.9, adult; S41.102D Unspecified open wound of left upper arm, subsequent encounter; F17.210 Nicotine dependence, cigarettes, uncomplicated
CPT/HCPCS: 80305; 96374; G0480

== ENCOUNTER 2017-11-16 08:51 | Inpatient (IN) | payer MEDICAID ==
--- NOTE | 2017-11-16 09:04 | CPEKG ---
Heart Rate: 104 RR Interval: 577 P-R Interval: 168 QRSD Interval: 108 QT Interval: 392 QTC Interval: 516 P [place]: 57 QRS [place]: 91 T Wave [place]: 25 EKG Severity - ABNORMAL ECG - EKG Impression: SINUS TACHYCARDIA EKG Impression: INFERIOR INFARCT, AGE INDETERMINATE EKG Impression: PROLONGED QT INTERVAL Electronically Signed By: Nila Carrasquillo 16-Nov-2017 14:59:40
[2017-11-16] MEDS ORDERED: HYDROmorphONE/DILAUDID 1 MG/ML INJ IVP ONE (09:11)
[2017-11-16] MEDS ORDERED: ONDANSETRON 4 MG/2 ML VIAL IVP ONE (09:11)
[2017-11-16] MEDS ORDERED: NS 1,000 ML IV ONE (09:11)
--- NOTE | 2017-11-16 09:17 | EDPHY ---
H & P Time Seen by Provider: 11/16/17 09:03 HPI/ROS: CHIEF COMPLAINT: Left-sided chest pain, shortness of breath HISTORY OF PRESENT ILLNESS: 47-year-old male with a history of depression and hypertension presents with left-sided chest pain and shortness of breath. Onset of shortness of breath 4 days ago. The shortness of breath increases with exertion and is associated with a mild cough. Left-sided chest discomfort began 3 days ago and is constant and severe. The chest pain increases with supine positioning and deep inspiration. Unable to sleep b/c of pain. Associated with decreased appetite and a few episodes of vomiting. No fever or URI symptoms. History of recent superficial venous thrombosis, but no prior history of DVT. REVIEW OF SYSTEMS: Constitutional: No fever, no chills Eyes: No visual changes ENT: No sore throat Genitourinary: no dysuria Musculoskeletal: No leg pain or swelling Skin: No rash Neurological: No headache, no weakness Psychiatric: depression Past Medical/Surgical History: Hypertension, off medications currently, previously prescribed valsartan 10 mg twice daily Depression Superficial thrombophlebitis Social History: Moderate alcohol use Smoking Status: Light smoker Physical Exam: General Appearance: Alert, appears in pain Eyes: Pupils equal and round, no conjunctival pallor or injection ENT, Mouth: Mucous membranes moist Neck: Normal inspection Respiratory: Few expiratory wheezes Cardiovascular: Regular tachycardia Gastrointestinal: Abdomen is soft, moderate epigastric and left upper quadrant tenderness Neurological: A&O, nonfocal, normal gait Skin: Warm and dry Extremities: Nontender, no pedal edema Psychiatric: Mood and affect normal Constitutional: Initial Vital Signs Temperature (C) 37.1 C 11/16/17 08:56 Heart Rate 105 H 11/16/17 08:56 Respiratory Rate 24 H 11/16/17 08:56 Blood Pressure 176/122 H 11/16/17 08:56 O2 Sat (%) 96 11/16/17 08:56 O2 Delivery Mode Nasal Cannula O2 (L/minute) 2 Allergies/Adverse Reactions: No Known Allergies Allergy (Unverified 09/29/16 08:45) Home Medications: Medication Instructions Recorded Acetaminophen [Tylenol 325mg (*)] 650 mg PO Q4HRS PRN tab 11/18/17 Enoxaparin [Lovenox 150 MG (*)] 130 mg SC BID #20 syr 11/18/17 Sertraline HCl [Zoloft 100mg (*)] 200 mg PO DAILY #60 tab 11/18/17 Valsartan [Diovan (*)] 40 mg PO BID #60 tab 11/18/17 Warfarin Sodium [Coumadin 5MG (*)] 5 mg PO DAILY AT 4PM #30 tab 11/18/17 oxyCODONE IR [Oxycodone Ir (*)] 5 mg PO Q4 PRN #20 tab 11/18/17 Medical Decision Making - Diagnostics EKG Interpretation: EKG interpreted by me reveals sinus tachycardia, rate 104, inferior Q-waves, no ST or T segment changes. Interpretation: Borderline EKG Imaging Results: Imaging Impressions Chest/Thorax CTA 11/16/17 09:46 Impression: 1. Positive pulmonary thromboemboli, moderate volume, predominantly in the left upper and lower lobes. 2. Moderate right pleural effusion and small left pleural effusion. 3. Lingular opacities representing pulmonary infarct versus pneumonia. 4. Right lower lobe 25 x 23 mm pulmonary nodule versus rounded pneumonitis. Recommend follow-up until clear to exclude malignancy. Findings and recommendations discussed with Emergency Department physician, Nila Carrasquillo at 1020 hours, 11/16/2017. Final report concurs with initial preliminary interpretation. A test result has been communicated to a licensed care provider and documented in the [facility] Result system on 11/16/2017 10:32, Message ID [id number]. ADDENDUM: 11/18/17 1230 Impression: 1. Right lower lobe 25 x 23 mm pulmonary nodule is new since February 2016 and, therefore, follow-up CT chest in 3 months is recommended to ensure resolution and exclude malignancy. 2. Moderate right pleural effusion and small left pleural effusion are new. 3. Pulmonary thromboemboli are also acute. ED Course/Re-evaluation: This patient presents with 3 day history of constant left-sided chest pain, shortness of breath and vomiting. Clinical presentation concerning for acute pulmonary embolism, with tachycardia and tachypnea, though he has no risk factors for pulmonary embolism. D-dimer ordered. Stat EKG reveals no evidence of ischemia or dysrhythmia. Labs/CXR ordered. Dilaudid and Zofran IV given for pain control. Multiple doses required to control pain. 9:45 p.m.-D-dimer is elevated at 2.96. CT pulmonary angiogram ordered. CTA reveals moderate volume PE. Results d/w pt. Risks/benefits of anticoagulation discussed and pt agrees with treatment. Heparin per weight- based protocol initiated. The hospitalist was consulted for admission. Ad[facility] to [facility] in stable condition. Critical care time of 35 minutes by me exclusive of unbundled procedures. Time spent in direct contact with patient, ordering of tests and explanations of tests, ordering medications, consultations. Organ at risk: lungs. Differential Diagnosis: Differential diagnosis includes though it is not limited to pneumonia, pneumothorax, pulmonary embolism, aortic dissection, pericarditis, acute coronary syndrome. - Data Points Laboratory Results: Laboratory Results 11/17/17 05:22 11/17/17 05:22 Microbiology Results: MICROBIOLOGY 11/17/17 12:18 Thoracic Fluid - Aspirate Gram Stain - Final 11/17/17 12:18 Thoracic Fluid - Aspirate Body Fluid Culture - Preliminary Medications Given: Discontinued Medications Acetaminophen (Tylenol) 650 mg PO Q4HRS PRN PRN Reason: Pain, Mild/Fever, Can Take PO Stop: 05/15/18 11:21 Last Admin: 11/17/17 21:01 Dose: 650 mg Al Hydroxide/Mg Hydroxide (Maalox Susp) 30 ml PO ONCE ONE Stop: 11/16/17 09:38 Last Admin: 11/16/17 11:30 Dose: Not Given Enoxaparin Sodium (Lovenox) 130 mg SC BID [facility] Stop: 05/16/18 14:44 Last Admin: 11/18/17 08:47 Dose: 130 mg Folic Acid (Folic Acid) 1 mg PO DAILY MEHREEN Stop: 05/15/18 16:44 Last Admin: 11/18/17 08:45 Dose: 1 mg Heparin Sodium (Porcine) (Heparin Injection) 0 unit IVP EDNOW ONE PRN Reason: Protocol Stop: 11/16/17 10:24 Last Admin: 11/16/17 11:05 Dose: 7,000 units Heparin Sodium (Porcine) (Heparin Injection) 0 unit IVP ONCE ONE PRN Reason: Protocol Stop: 11/16/17 12:12 Last Admin: 11/16/17 14:07 Dose: Not Given Heparin Sodium (Porcine) (Heparin Injection) 0 unit IVP PRN PRN; Protocol PRN Reason: Bolus per protocol Stop: 05/15/18 12:10 Last Admin: 11/17/17 02:09 Dose: 2,216 units Hydromorphone HCl (Dilaudid) 0.5 mg IVP EDNOW ONE Stop: 11/16/17 09:12 Last Admin: 11/16/17 09:22 Dose: 0.5 mg Hyoscyamine Sulfate (Levsin, Hyomax-Sl) 0.25 mg PO ONCE ONE Stop: 11/16/17 09:38 Last Admin: 11/16/17 11:29 Dose: Not Given Sodium Chloride (Ns) 1,000 mls @ 0 mls/hr IV EDNOW ONE; Wide Open PRN Reason: Protocol Stop: 11/16/17 09:12 Last Admin: 11/16/17 09:22 Dose: 1,000 mls Heparin Sodium (Porcine) (Heparin 50 Units/Ml (Premix)) 500 mls @ 0 mls/hr IV EDNOW ONE; Per Protocol PRN Reason: Protocol Stop: 11/16/17 10:24 Last Admin: 11/16/17 11:09 Dose: 500 mls Heparin Sodium (Porcine) (Heparin 50 Units/Ml (Premix)) 500 mls @ 0 mls/hr IV CONT MEHREEN; Per Protocol PRN Reason: Protocol Stop: 05/15/18 12:14 Last Admin: 11/17/17 00:10 Dose: 500 mls Thiamine HCl 500 mg/ Sodium (Chloride) 505 mls @ 505 mls/hr IV DAILY MEHREEN Stop: 11/18/17 09:59 Last Admin: 11/17/17 10:15 Dose: Not Given Ketorolac Tromethamine (Toradol) 30 mg IVP Q6HRS PRN PRN Reason: Pain, Inflammatory Stop: 11/21/17 12:10 Last Admin: 11/17/17 05:04 Dose: 30 mg Lidocaine (Lidocaine 2% Viscous) 15 ml PO ONCE ONE Stop: 11/16/17 09:38 Last Admin: 11/16/17 11:30 Dose: Not Given Lorazepam (Ativan) 0 mg PO Q4HRS PRN; Protocol PRN Reason: Alcohol W/D w/ No IV Access Stop: 05/15/18 16:44 Last Admin: 11/17/17 16:32 Dose: 1 mg Lorazepam (Ativan Injection) 2 mg IV ONCE ONE Stop: 11/16/17 18:16 Last Admin: 11/16/17 18:36 Dose: 2 mg Lorazepam (Ativan Injection) 1 mg IVP Q4HRS PRN PRN Reason: Anxiety Stop: 05/15/18 21:02 Last Admin: 11/17/17 00:23 Dose: 1 mg Lorazepam (Ativan) 1 mg PO BID PRN PRN Reason: ANXIETY Stop: 05/16/18 17:36 Last Admin: 11/17/17 21:01 Dose: 1 mg Multivitamins (Tab-A-Devin) 1 each PO DAILY MEHREEN Stop: 05/15/18 16:44 Last Admin: 11/18/17 08:45 Dose: 1 each Ondansetron HCl (Zofran) 4 mg IVP EDNOW ONE Stop: 11/16/17 09:12 Last Admin: 11/16/17 09:21 Dose: 4 mg Oxycodone HCl (Oxycodone Ir) 10 mg PO Q4 PRN PRN Reason: Pain, Severe Able to Take PO Stop: 11/26/17 12:11 Last Admin: 11/18/17 08:42 Dose: 10 mg Sertraline HCl (Zoloft) 200 mg PO DAILY MEHREEN Stop: 05/15/18 16:44 Last Admin: 11/18/17 08:44 Dose: 200 mg Thiamine HCl (Vitamin B-1) 500 mg PO DAILY MEHREEN Stop: 11/18/17 09:01 Last Admin: 11/18/17 08:45 Dose: 500 mg Valsartan (Diovan) 40 mg PO BID MEHREEN Stop: 05/15/18 16:44 Last Admin: 11/18/17 08:45 Dose: 40 mg Warfarin Sodium (Coumadin) 5 mg PO DAILY AT 4PM MEHREEN Stop: 05/16/18 15:59 Last Admin: 11/17/17 16:32 Dose: 5 mg Departure - Departure Disposition: [facility] Acute Clinical Impression: Pulmonary embolism Qualifiers: Pulmonary embolism type: other Chronicity: acute Acute cor pulmonale presence: without acute cor pulmonale Qualified Code(s): I26.99 - Other pulmonary embolism without acute cor pulmonale Condition: Serious
[2017-11-16 09:22] LABS: PLATELET COUNT 220 10^3/uL (150-400)
[2017-11-16] MEDS ORDERED: HYOSCYAMINE SULFATE 0.125 MG TAB PO ONE (09:37)
[2017-11-16] MEDS ORDERED: MAG HYDROX/AL HYDROX/SIMETH 30 ML UDCUP PO ONE (09:37)
[2017-11-16] MEDS ORDERED: LIDOCAINE 2% VISCOUS 15 ML UDCUP PO ONE (09:37)
[2017-11-16] MEDS ORDERED: IOPAMIDOL (ISOVUE 370) 100 ML BTL IV ONE (09:47)
[2017-11-16] MEDS ORDERED: HEPARIN/DEXTROSE 500 ML IV ONE (10:23)
[2017-11-16] MEDS ORDERED: HEPARIN 10,000 UNIT/10 ML MDV (1,000 UNIT/ML) IVP ONE ×2 (10:23→12:11)
[2017-11-16 10:41] LABS: INR 1.01 (0.83-1.16); PROTIME(PATIENT) 13.5 SEC (12.0-15.0)
[2017-11-16] MEDS ORDERED: ONDANSETRON 4 MG/2 ML VIAL IVP PRN (11:22)
[2017-11-16] MEDS ORDERED: ONDANSETRON DISINTEGRATING 4 MG TAB PO PRN (11:22)
[2017-11-16] MEDS ORDERED: HEPARIN/DEXTROSE 500 ML IV SCH (12:15)
[2017-11-16] MEDS: oxyCODONE IR 5 MG TAB PO PRN ×2 (12:31→16:31)
[2017-11-16] MEDS: KETOROLAC 30 MG/1 ML SDV IVP PRN (12:31)
--- NOTE | 2017-11-16 13:29 | GHP ---
[f rep st] HISTORY AND PHYSICAL DATE OF ADMISSION: 11/16/2017 CHIEF COMPLAINT: Pulmonary embolism. PRIMARY LITHOGRAPHERS PRINTER: Dr. Landeros at [facility]. HISTORY OF PRESENT ILLNESS: A 47-year-old male with history of prior left leg DVT, who presented with left-sided chest pain, started Kevin night. He described it as sharp and stabbing. The pain is worse with movement and deep inspiration. It improves with sitting up. He has had a nonproductive cough. No fevers, chills, or sweats. No nausea, vomiting. He had been on Coumadin for 3 months, with a left leg DVT, and he was not clear of the reasoning for the clot. He had an ultrasound done in 2017 here that showed left calf superficial thrombophlebitis. Also, complaining of headache. He has had some dizziness, but no loss of consciousness. REVIEW OF SYSTEMS: PSYCH: Denies HI or SI. I completed a 10-point Review of Systems, negative except as noted in HPI. PAST MEDICAL HISTORY: 1. History of left leg DVT several years ago, he stated, at [facility], but I do not find this in [facility]. 2. Hines esophagus, followed closely with EGDs every [address] Landeros at [facility]. 3. Hypertension. He has been off medications for 2 weeks. 4. Depression, on Zoloft. Sees a counselor. 5. History of prior suicidal attempts. PAST SURGICAL HISTORY: Left shoulder, 2 right shoulder rotator cuff repairs, appendectomy, ear drum surgery, left wrist. Had a colonoscopy last year that was normal. FAMILY HISTORY: No cancer or diabetes. States mom and dad both had clots associated with surgeries. SOCIAL HISTORY: Lives with his brother in [place]. Was a prior otr tanker truck driver. He is on disability due to his shoulders. He smokes 4-5 cigarettes over the last month, but smokes at least a pack to 3 packs a day for 30 years. Alcohol: 6-pack 2-3 times a week. Last drink was yesterday. Denies withdrawal. Medical marijuana at least once daily. MEDICATIONS: Has been off the Zoloft and an antihypertensive for 2 weeks. ALLERGIES: None. PHYSICAL EXAM: VITAL SIGNS: Temperature 37, blood pressure 140/90, heart rate 96 to 118, respirations 18, 97% on 2 L, 90 on room air. GENERAL: Obese male sitting up, uncomfortable, appears to be in pain. HEENT: PERRLA. Moist mucous membranes. CV: Regular rate and rhythm. No murmurs, gallops, rubs. LUNGS: Diminished breath sounds, bilateral bases, greater on the right. GI: Soft, nontender, nondistended. Positive bowel sounds. : No Hauser. MUSCULOSKELETAL: 5/5 upper and lower extremity strength. Left calf with superficial thrombophlebitis. Cording on posterior calf and ankle. NEURO: 2 through 12 intact. PSYCH: Alert and oriented x3. LABS: WBC is 7.76, hemoglobin 17, hematocrit 49, platelets 220. D-dimer is 2.96. INR is 1.01, PT is 13. Sodium 137, potassium 3.7, chloride 103, carbon dioxide 20, anion gap 14, creatinine 0.8, total bilirubin is 1.5, AST 39, ALT is 38, alk phos 114, conjugated 0.6. BNP is 252. EKG is personally reviewed by me. Sinus tachycardia. Poor waveform. Lower extremity ultrasound: Superficial thrombophlebitis in the left calf, greater saphenous vein. CTA: Positive PE. Moderate volume predominantly in the left upper and lower lobes. Moderate right pleural effusion. Small left pleural effusion. Lingular opacities representing infarct versus pneumonia. Right lower lobe 25 x 20 mm pulmonary nodule versus pneumonitis. ASSESSMENT AND PLAN: 1. Acute pulmonary embolism: h/o DVT. U/S today shows superficial thrombophlebitis in left leg. Hemodynamically stable with normal troponin and BNP. Echo without e/o right heart strain. Heparin gtt Given he is on Medicaid , he would prefer for Coumadin for cost constraints. CM to assist with PCP appt 2. Acute chest pain: due to PE. Negative troponin. PRN Toradol and oxycodone. 3. Pleural effusion: suspect due to PE. Has had mild cough, no fevers. NL procalcitonin. May consider thoracentesis tomorrow. 4. Pulmonary nodule. Concern for possible malignancy given significant history. Will treat acute PE and further investigate with repeat imaging. May need biopsy in future. 5. Nicotine abuse. Declines patch. 6. Marijuana use. Uses medical marijuana daily. 7. Alcohol use: last drink yesterday. CIWA, MV/T/F. 8. Depression. Denies suicidal or homicidal ideations. He has been off the Zoloft for 2 weeks. He would benefit from a primary care physician. He does see a counselor weekly. Restart Zoloft 9. Accelerated hypertension: pain and Etoh w/d likely contributing. Restart home Losartan. Will have to obtain normal home medication he takes. Suspect currently some associated with pain. Will re-evaluate. 10. DVT prophylaxis. Heparin drip. 11. Diet: Regular. DISPOSITION: Patient warrants observation given acute pulmonary embolus requiring heparin drip. Echocardiogram and possible thoracentesis. /[id number]/MODL MTDD
--- NOTE | 2017-11-16 14:24 | ECHO ---
[email or web address] [address] [address] Main: [phone] Fax: Transthoracic Echocardiogram Name: SHIRLEY MOSLEY MR#: [id number] Study Date: 11/16/2017 Study Time: 01:43 PM Date of : 1970 Age: 47 year(s) Height: 188 cm (74 in.) Weight: 131.54 kg (290 lb.) BSA: 2.54 m2 Gender: Male Examination: Echo Indication: PE, Pleural Effusion, Eval for right heart strain Image Quality: Contrast: Requested by: Sharon Acosta BP: 154 mmHg/110 mmHg Heart Rate: Rhythm: Tachycardia Indication: PE, Pleural Effusion, Eval for right heart strain Procedure Staff Manager Mechanical: Nilo Presley RDCS Reading Physician: Noble Mcmanus MD Requesting Provider: Conclusions: Normal size left ventricle. No LV hypertrophy. Normal global systolic LV function. EF is 62 %. No regional wall motion abnormality. Diastolic dysfunction is present. . Normal RV function. There is no mitral valve regurgitation. There is no aortic valve regurgitation. There is no tricuspid valve regurgitation. Measurements: Chambers Valvular Assessment AV/MV Valvular Assessment TV/PV Normal Normal Normal Name Value Range Name Value Range Name Value Range Ao Gretchen (MM): 3.8 cm (2.2 cm-3.7 AV Vmax: 1.13 m/s (1 m/s-1.7 PV Vmax: 0.95 m/s (0.6 m/s-0.9 cm) m/s) m/s) IVSd (2D): 1.2 cm (0.6 cm-1.1 AV maxP mmHg ( - ) PV PGmax: 4 mmHg ( - ) cm) LVOT Vmax: 1.08 m/s (0.7 m/s-1.1 LVDd (2D): 5.4 cm (4.2 cm-5.9 m/s) cm) MV E Vmax: 0.67 m/s ( - ) LVDs (2D): 3.6 cm (2.1 cm-4 MV A Vmax: 0.48 m/s ( - ) cm) MV E/A: 1.40 ( - ) LVPWd (2D): 1.3 cm (0.6 cm-1 cm) LVEF (2D): 62 (>=54 %) RVDd(2D): 3.2 cm (1.9 cm-3.8 cmmm) Continued Measurements: Patient: SHIRLEY MOSLEY Study Date: 11/16/2017 Page 1 of 2 01:43 PM Chambers Valvular Assessment AV/MV Name Value Name Value LADs Lon.9 cm MV E/E' Septal: 10.90 LA Area: 13.7 cm2 MV E/E' Lateral: 13.80 LA Volume: 59 ml LA Volume Index: 23.2 ml/m2 Findings: Left Ventricle: Normal size left ventricle. No LV hypertrophy. Normal global systolic LV function. EF is 62 %. No regional wall motion abnormality. Diastolic dysfunction is present. . Right Ventricle: Normal size right ventricle. Normal RV function. Left Atrium: The left atrium is normal in size. Right Atrium: The right atrium is normal in size. Mitral Valve: The mitral valve is normal in appearance and function. There is no mitral valve regurgitation. Aortic Valve: The aortic valve is normal in appearance and function. There is no aortic valve regurgitation. Tricuspid Valve: The tricuspid valve is normal in appearance and function. There is no tricuspid valve regurgitation. Pulmonic Valve: The pulmonic valve is normal in appearance and function. Aorta: The aorta is normal. Pericardium: No pericardial effusion. (No Signature Object) Patient: SHIRLEY MOSLEY Study Date: 11/16/2017 Page 2 of 2 01:43 PM [id number]
--- NOTE | 2017-11-16 16:54 | ASMTCASEMG ---
Living Arrangements What is your living Answers: With Other Relative(s) arrangement? Who do you live with? Type Of Residence What kind of residence do Answers: House you live in? Discharge Plan Comments Coordination Status Comments Notes: Patient requested assistance with getting a PCP. He has gone to Dr. Hortensia Bradford in the past but she does not understand he can only see a therapist or a psychiatrist with Medicaid and not both. Patient needs his psych meds but he sees a therapist, Cesilia Rodríguez in [place] once per week. This has been important to him to have this weekly support through the of his dad, his brother being hospitalized and his own suicide attempt in August. Patient states Dr. Bradford will not prescribe his medication unless he goes to see a psychiatrist but he would then have to give up his therapy appointments. Originally, I made an appointment for him with Dr. Bradford on November 25, 2017 @ 1:15 (13:15) as follow up to his hospital stay. Will reschedule tomorrow with another provider who is comfortable with prescribing patient's psych meds and supporting his remaining in treatment with his therapist. Offices have closed for the day. CM will follow. Date Signed: 11/16/2017 04:53 PM Electronically Signed By:Liz Jonas LCSW
[2017-11-16] MEDS: FOLIC ACID 1 MG TAB PO SCH (17:18)
[2017-11-16] MEDS: SERTRALINE HCL 100 MG TAB PO SCH (17:18)
[2017-11-16] MEDS: THIAMINE HCL 500 MG in NS 500 ML IV SCH (17:18)
[2017-11-16] MEDS: MULTIVITAMINS 1 EACH TAB PO SCH (17:18)
[2017-11-16] MEDS: VALSARTAN 40 MG TAB PO SCH ×2 (17:19→21:50)
[2017-11-16] MEDS ORDERED: LORazepam 1 MG TAB PO PRN (18:08)
[2017-11-16] MEDS ORDERED: LORazepam 2 MG/ML INJ IV ONE (18:15)
[2017-11-16] MEDS: HEPARIN 10,000 UNIT/10 ML MDV (1,000 UNIT/ML) IVP PRN (18:32)
[2017-11-16] MEDS ORDERED: LORazepam 2 MG/ML INJ IVP PRN (21:03)
[2017-11-17] MEDS: oxyCODONE IR 5 MG TAB PO PRN ×5 (00:08→21:01)
[2017-11-17] MEDS: HEPARIN 10,000 UNIT/10 ML MDV (1,000 UNIT/ML) IVP PRN (02:09)
[2017-11-17] MEDS: KETOROLAC 30 MG/1 ML SDV IVP PRN (05:04)
[2017-11-17] MEDS: LORazepam 1 MG TAB PO PRN ×2 (05:16→16:32)
[2017-11-17] MEDS: VALSARTAN 40 MG TAB PO SCH ×2 (09:23→21:02)
[2017-11-17] MEDS: FOLIC ACID 1 MG TAB PO SCH (09:23)
[2017-11-17] MEDS: SERTRALINE HCL 100 MG TAB PO SCH (09:23)
[2017-11-17] MEDS: MULTIVITAMINS 1 EACH TAB PO SCH (09:23)
[2017-11-17] MEDS: THIAMINE HCL 500 MG in NS 500 ML IV SCH (10:15)
[2017-11-17] MEDS ORDERED: LIDOCAINE 1% 300 MG/30 ML SDV ONE (10:26)
[2017-11-17] MEDS: THIAMINE HCL 100 MG TAB PO SCH (10:32)
--- NOTE | 2017-11-17 12:13 | HOSPPROG ---
Hospitalist Progress Note Assessment/Plan: #Acute PE: transition to coumadin with Lovenox bridge today #Symptomatic pleural effusion: R>L. Suspect due to PE. No signs infection, negative procalcitonin -tap for symptom relief, send cytology #RUL nodule: DDx: infarct vs. larger nodule. I personally reviewed [facility] records, and 3mm RRL nodule present then. Discussed with Dr. Trent with Radiology and we agree to obtain OSH imaging to compare. Repeat CT scan in 2 months, if not smaller, then biospy #Nicotine dependence: declined patch #Etoh abuse and withdrawal: minimal BZ needs #Depression: restart Zoloft #HTN: been off meds for 2 weeks. Restart home Valsartan #Acute hypoxic resp failure: to due to effusion, PE. RA challenge after tap #Diet: regular #DVT ppx: heparin gtt #Disp: cont inpatient admission for IV heparin, dizziness and cont pulse ox. If clinically improved, can DC tomorrow Subjective: still very dizzy with standing. Mild SOB, persistent pain on left Objective: Vital Signs Temp Pulse Resp BP Pulse Ox 36.6 C 85 18 144/84 H 92 11/17/17 12:00 11/17/17 12:00 11/17/17 12:00 11/17/17 12:00 11/17/17 12:00 Laboratory Results 11/17/17 05:22 11/17/17 05:22 11/16/17 11/17/17 11/18/17 05:59 05:59 05:59 Intake Total 2729 Output Total 0 Balance 2729 PT 13.5 SEC (12.0-15.0) 11/16/17 09:55 INR 1.01 (0.83-1.16) 11/16/17 09:55 - Time Spent With Patient Time Spent with Patient: greater than 35 minutes Time Spent with Patient: Greater than 35 minutes spent on this patients care, greater than 50% of time spent counseling, educating, and coordinating care regarding the above mentioned plan. - Physical Exam Constitutional: obese Eyes: PERRL Ears, Nose, Mouth, Throat: moist mucous membranes, hearing normal Cardiovascular: regular rate and rhythym, no murmur, rub, or gallop, other (TTP over sternum, MARILOU chest ), No edema Respiratory: no respiratory distress, reduced air movement (BL bases, R>L) Gastrointestinal: normoactive bowel sounds Skin: warm Musculoskeletal: full muscle strength ICD10 Worksheet Patient Problems: Problems Problem Status Onset Alcohol intoxication Acute Laceration of forearm, left, complicated Acute Polysubstance abuse Acute Suicide attempt by method other than substance overdose Acute
--- NOTE | 2017-11-17 15:20 | PDMN ---
Medical Necessity Medical necessity: change to IP; los>2mn for acute PE, w/continued SOB, dizziness and pain, etoh abuse and withdrawal; requires bridging for transition from hep gtt to Lovenox, continuous pulse ox, wean O2 after thoracentesis; per order and progress note 11/17/17
[2017-11-17] MEDS ORDERED: WARFARIN SODIUM 5 MG TAB PO SCH (16:00)
[2017-11-17] MEDS: ENOXAPARIN 150 MG/ML SYR SC SCH ×2 (16:32→21:03)
[2017-11-17] MEDS: ACETAMINOPHEN 325 MG TAB PO PRN ×2 (16:32→21:01)
[2017-11-17] MEDS ORDERED: LORazepam 1 MG TAB PO PRN (17:37)
[2017-11-18] MEDS: oxyCODONE IR 5 MG TAB PO PRN ×2 (04:52→08:42)
[2017-11-18 05:01] LABS: INR 1.08 (0.83-1.16); PROTIME(PATIENT) 14.2 SEC (12.0-15.0)
[2017-11-18 08:36] VITALS: BP 168/105; PULSE 70; RESP 16; TEMP 98.1; O2SAT 94
[2017-11-18] MEDS: SERTRALINE HCL 100 MG TAB PO SCH (08:44)
[2017-11-18] MEDS: FOLIC ACID 1 MG TAB PO SCH (08:45)
[2017-11-18] MEDS: MULTIVITAMINS 1 EACH TAB PO SCH (08:45)
[2017-11-18] MEDS: THIAMINE HCL 100 MG TAB PO SCH (08:45)
[2017-11-18] MEDS: VALSARTAN 40 MG TAB PO SCH (08:45)
[2017-11-18] MEDS: ENOXAPARIN 150 MG/ML SYR SC SCH (08:47)
--- NOTE | 2017-11-18 11:17 | ASDISCHSUM ---
Discharge Information Plan Status: Medically Cleared to Leave: Discharge Date:11/18/2017 11:04 AM CM D/C Disposition: ADT D/C Disposition:Home, Routine, Self-Care Projected Discharge Date:11/18/2017 11:04 AM Transportation at D/C: Discharge Delay Reason: Follow-Up Date:11/18/2017 11:04 AM Discharge Slot: Final Diagnosis: Placement Information Patient Contact Information Contact Name:TRENA Relationship:Father Address: Work Phone: City: [facility] Phone: State/Zip Code: Email: Financial Information Financial Class:Medicaid Primary Plan Desc:[employer] [place] Primary Plan Number:[id number] Secondary Plan Desc: Secondary Plan Number: Assessment Information [facility] Initial CM Assessment Living Arrangements What is your living Answers: With Other Relative(s) arrangement? Who do you live with? Type Of Residence What kind of residence do Answers: House you live in? Discharge Plan Comments Coordination Status Comments Notes: Patient requested assistance with getting a PCP. He has gone to Dr. Hortensia Bradford in the past but she does not understand he can only see a therapist or a psychiatrist with Medicaid and not both. Patient needs his psych meds but he sees a therapist, Cesilia Rodríguez in [place] once per week. This has been important to him to have this weekly support through the of his dad, his brother being hospitalized and his own suicide attempt in August. Patient states Dr. Bradford will not prescribe his medication unless he goes to see a psychiatrist but he would then have to give up his therapy appointments. Originally, I made an appointment for him with Dr. Bradford on November 25, 2017 @ 1:15 (13:15) as follow up to his hospital stay. Will reschedule tomorrow with another provider who is comfortable with prescribing patient's psych meds and supporting his remaining in treatment with his therapist. Offices have closed for the day. CM will follow. Date Signed: 11/16/2017 04:53 PM Electronically Signed By:Liz Jonas LCSW [facility] CM Progress Note CM Note CM Note Notes: Pt ready for DC today. Spoke with pt about need for PCP to do an INR check on Thursday. Pt agreed tp stay with his current MD, Dr Bradford. Dr Acosta wrote a prescripion for pt's zoloft. Pt will find a new PCP who can prescribe if Dr Bradford cannot. Pt had no other DC needs. Date Signed: 11/18/2017 11:16 AM Electronically Signed By:Sarah Buckner LCSW Intervention Information
--- NOTE | 2017-11-18 13:23 | GDS ---
[f rep st] DISCHARGE SUMMARY DISCHARGE DIAGNOSES: 1. Acute pulmonary embolism. 2. Acute hypoxic respiratory failure. 3. Left calf superficial thrombophlebitis. 4. History of left leg deep vein thrombosis. 5. Depression. 6. Hypertension. 7. Alcohol dependence. 8. Right lower lobe nodule. 9. Nicotine dependence. 10. Symptomatic pleural effusion. HISTORY OF PRESENT ILLNESS: A 47-year-old male with history of prior left leg DVT, hypertension, alcohol dependence, presenting with sharp left-sided chest pain that started Kevin night. It was stabbing in nature. Pain was worse with movement and deep inspiration. Improves with sitting up. He has not had fevers, chills, or sweats. No cough. He previously had a left leg clot, he cannot recall the date, and was treated with Coumadin for 3 months. He had an ultrasound done here in 2016 that showed left calf superficial thrombophlebitis. In the emergency room, underwent CTA that demonstrated new left-sided pulmonary embolism. HOSPITAL COURSE BY PROBLEM: 1. Acute pulmonary embolism: He does have a history of left leg clot that had previously been treated. Denied any recent travel. Ultrasound again showed left calf thrombophlebitis. No deep thrombosis. He was initially treated with heparin drip and transitioned to Coumadin and Lovenox bridge. He will follow up with his PCP on Thursday for repeat INR. 2. Symptomatic pleural effusion: This is bilateral, but greater on the right. He was initially requiring oxygen. He underwent therapeutic and diagnostic tap. No evidence of infection. He had negative procalcitonin, gram stain negative. BNP was normal. No malignant cells. 3. Right lower lobe nodule: Upon review of [facility] records, he had a CT in 2016 that showed a 3 mm nodule in the same area. It is now 23 x 20 mm. I did review this with Dr. Trent and Dr. Mcfadden. It could represent infarct, with acute pulmonary embolism. It would be helpful to treat PE, and then repeat scan in 2 months. If not decreased in size, then would recommend biopsy at that time. 4. Nicotine dependence: He declines patch. 5. Alcohol abuse and mild withdrawal here: He had minimal benzo needs. He was counseled on cessation. 6. Depression: Resume Zoloft. 7. Hypertension: He had been off his blood pressures for 2 weeks. Restarted his home valsartan. 8. Acute hypoxic respiratory failure: Secondary to PE and effusion. He is now stable on room air. DISPOSITION: The patient is stable for discharge home. NEW MEDICATIONS: 1. Coumadin 5 mg. 2. Lovenox 130 mg twice daily. 3. Zoloft 200 mg daily. 4. Valsartan 40 mg twice daily. FOLLOWUP: 1. With his primary care physician. 2. Followup INR. 3. Repeat CT scan of chest in 2 months to evaluate right lower lobe nodule. PHYSICAL EXAM: VITAL SIGNS: 147/98, heart rate 63, respiratory 18, 94 on room air. GENERAL: Obese, sitting in bed. No acute distress. HEENT: PERRLA. EOMI. Oropharynx clear. CV: Regular rate and rhythm. No murmurs, gallops, rubs. Does have reproducible left-sided chest pain. LUNGS: Decreased, left greater than right. No crackles or wheezing. ABDOMEN: Soft, nontender, nondistended. Positive bowel sounds. : No Hauser. MUSCULOSKELETAL: 5/5 upper and lower extremity strength. NEUROLOGIC: 2 through 12 intact. PSYCHIATRIC: Alert and oriented x3. Time spent on DC: 45 min coordinating FU PCP with CM, treatment plan with patient /[id number]/MODL KEREN
[2017-11-19] MEDS ORDERED: THIAMINE HCL 100 MG TAB PO SCH (09:00)
== END 2017-11-18 11:04 | disposition home or self-care (01) | DRG 175 ==
LOC: INTOOBSV 10:28 → F1N 11:39 → OBSVTOIN 11-17 14:31
PROVIDERS: ADMIT Internal Medicine; ATTEND Internal Medicine
PROC: 0W993ZX Drainage of Right Pleural Cavity, Percutaneous Approach, Diagnostic (ICD-10-PCS; principal; 2017-11-17)
DX: I26.99 Other pulmonary embolism without acute cor pulmonale (principal); J96.01 Acute respiratory failure with hypoxia; F10.230 Alcohol dependence with withdrawal, uncomplicated; J90 Pleural effusion, not elsewhere classified; I80.02 Phlebitis and thrombophlebitis of superficial vessels of left lower extremity; F32.9 Major depressive disorder, single episode, unspecified; I10 Essential (primary) hypertension; R91.1 Solitary pulmonary nodule; F17.200 Nicotine dependence, unspecified, uncomplicated; K22.70 Barrett's esophagus without dysplasia; Z86.718 Personal history of other venous thrombosis and embolism
CPT/HCPCS: 85520-90; 96374; G0378; J1170; J1644; J1650; J1885; J2060; J2405; J3411; Q9967

== ENCOUNTER 2017-12-02 15:33 | Observation (INO) | payer MEDICAID ==
--- NOTE | 2017-12-02 16:25 | EDPHY ---
H & P Time Seen by Provider: 12/02/17 16:10 HPI/ROS: CHIEF COMPLAINT: Bleeding mouth HISTORY OF PRESENT ILLNESS: The patient is a 47-year-old male with a recent diagnosis of pulmonary embolus, discharge from the hospital on 11/17/2017. He is currently taking Lovenox and warfarin. Since Thursday he has had increased bleeding from his mouth. This is from multiple locations. He states he is unable to sleep because of the amount of blood that is "oozing out."He is not lightheaded or dizzy. He has no chest pain. No new shortness of breath. He is not having any other bruising or bleeding reported. REVIEW OF SYSTEMS: My complete review of systems is negative except as mentioned in the HPI. Past Medical/Surgical History: Includes hypertension, DVT, pulmonary embolus, alcohol dependence, thrombophlebitis, lower lobe nodule, nicotine dependence, pleural effusion Past surgical history: Orthopedic surgery, appendectomy, ear tubes Social history: The patient smokes Smoking Status: Light smoker Physical Exam: 37, 127, 112, 18, 95% on room air GENERAL: Well-appearing, in no acute distress, alert. HEENT: Eyes normal to inspection, no signs of dehydration. The patient has multiple areas of oozing blood in his mouth. This is primarily around his upper dentition. Patient also has is noted to have a lesion on his left cheek. This is dark in appearance and approximately 1 cm in diameter. NECK: [No thyromegaly, no lymphadenopathy, supple. RESPIRATORY: Clear to auscultation bilaterally, no rales, rhonchi or wheezing. CVS: Regular rate and rhythm, no rubs, murmurs, or gallops. ABDOMEN: Soft, nontender, nondistended, no organomegaly. BACK: Normal to inspection, no CVA tenderness. SKIN: Normal color, no rash, warm, dry. No pallor. No petechiae EXTREMITIES: No pedal edema, no calf tenderness, no Homans sign or cords, no joint swelling. NEURO/PSYCH: Alert and oriented x3, normal mood and affect, normal motor sensory exam. Constitutional: Initial Vital Signs Temperature (C) 37 C 12/02/17 15:49 Heart Rate 112 H 12/02/17 15:49 Respiratory Rate 18 12/02/17 15:49 Blood Pressure 112/97 H 12/02/17 15:49 O2 Sat (%) 95 12/02/17 15:49 O2 Delivery Mode Room Air Allergies/Adverse Reactions: No Known Allergies Allergy (Verified 12/02/17 15:48) Home Medications: Medication Instructions Recorded Acetaminophen [Tylenol 325mg (*)] 650 mg PO Q4HRS PRN tab 11/18/17 Enoxaparin [Lovenox 150 MG (*)] 130 mg SC BID #20 syr 11/18/17 Sertraline HCl [Zoloft 100mg (*)] 200 mg PO DAILY #60 tab 11/18/17 Valsartan [Diovan (*)] 40 mg PO BID #60 tab 11/18/17 Warfarin Sodium [Coumadin 5MG (*)] 5 mg PO DAILY AT 4PM #30 tab 11/18/17 oxyCODONE IR [Oxycodone Ir (*)] 5 mg PO Q4 PRN #20 tab 11/18/17 Medical Decision Making ED Course/Re-evaluation: In the emergency department I discussed possible etiologies with the patient. I answered all his questions. IV placed. Laboratory studies were obtained. Patient's hematocrit was 48. Chemistry panel was notable for slightly low CO2. Anion gap is elevated 19. Potassium is 2.9. Awaiting coags results. Patient was given potassium chloride 60 mEq orally. INR was elevated at 5. I discussed the results with the patient. I answered all his questions. I recommended admission. I discussed the case with Dr. Farias. He accepts the patient. At this time he will see the patient prior to reversal. I feel it is appropriate to hold the patient's Lovenox and warfarin rather than acutely reversing the patient at this time. Differential Diagnosis: My differential includes but is not limited to coagulopathy, over medication, malignancy, anemia - Data Points Laboratory Results: Laboratory Results 12/02/17 16:00 12/02/17 16:00 12/02/17 12/02/17 12/02/17 16:00 16:00 16:00 WBC 10.91 10^3/uL H 10^3/uL (3.80-9.50) RBC 4.85 10^6/uL 10^6/uL (4.40-6.38) Hgb 17.6 g/dL H g/dL (13.7-17.5) Hct 48.7 % % (40.0-51.0) MCV 100.4 fL H fL (81.5-99.8) MCH 36.3 pg H pg (27.9-34.1) MCHC 36.1 g/dL g/dL (32.4-36.7) RDW 14.4 % % (11.5-15.2) Plt Count 313 10^3/uL 10^3/uL (150-400) MPV 9.6 fL fL (8.7-11.7) Neut % (Auto) 43.4 % % (39.3-74.2) Lymph % (Auto) 36.7 % % (15.0-45.0) [place] % (Auto) 7.3 % % (4.5-13.0) Eos % (Auto) 11.0 % H % (0.6-7.6) Baso % (Auto) 1.1 % % (0.3-1.7) Nucleat RBC Rel Count 0.0 % % (0.0-0.2) Absolute Neuts (auto) 4.74 10^3/uL 10^3/uL (1.70-6.50) Absolute Lymphs (auto) 4.00 10^3/uL H 10^3/uL (1.00-3.00) Absolute Monos (auto) 0.80 10^3/uL 10^3/uL (0.30-0.80) Absolute Eos (auto) 1.20 10^3/uL H 10^3/uL (0.03-0.40) Absolute Basos (auto) 0.12 10^3/uL H 10^3/uL (0.02-0.10) Absolute Nucleated RBC 0.00 10^3/uL 10^3/uL (0-0.01) Immature Gran % 0.5 % % (0.0-1.1) Immature Gran # 0.05 10^3/uL 10^3/uL (0.00-0.10) PT 45.6 SEC H SEC (12.0-15.0) INR 4.97 H (0.83-1.16) APTT 97.4 SEC H SEC (23.0-38.0) Sodium 147 mEq/L H mEq/L (135-145) Potassium 2.9 mEq/L L mEq/L (3.5-5.2) Chloride 108 mEq/L mEq/L (97-110) Carbon Dioxide 20 mEq/l L mEq/l (22-31) Anion Gap 19 mEq/L H mEq/L (8-16) BUN 6 mg/dL L mg/dL (7-23) Creatinine 0.7 mg/dL mg/dL (0.7-1.3) Estimated GFR > 60 Glucose 125 mg/dL H mg/dL (70-100) Calcium 8.6 mg/dL mg/dL (8.5-10.4) Medications Given: Discontinued Medications Ondansetron HCl (Zofran) 4 mg IVP EDNOW ONE Stop: 12/02/17 16:49 Last Admin: 12/02/17 16:49 Dose: 4 mg Potassium Chloride (Potassium Chloride Oral Liquid) 60 meq PO EDNOW ONE Stop: 12/02/17 16:39 Last Admin: 12/02/17 16:45 Dose: 60 meq Departure - Departure [facility] Clinical Impression: Coagulopathy Condition: Good Referrals: NONE *PRIMARY CARE P,. [Primary Care Provider] - As per Instructions
[2017-12-02 16:34] LABS: PLATELET COUNT 313 10^3/uL (150-400)
[2017-12-02] MEDS ORDERED: POTASSIUM CL 20 MEQ/15 ML UDCUP PO ONE (16:38)
[2017-12-02 16:45] LABS: INR 4.97 (0.83-1.16); PROTIME(PATIENT) 45.6 SEC (12.0-15.0)
[2017-12-02] MEDS ORDERED: ONDANSETRON 4 MG/2 ML VIAL ONE (16:47)
[2017-12-02] MEDS ORDERED: ONDANSETRON 4 MG/2 ML VIAL IVP ONE (16:48)
[2017-12-02] MEDS ORDERED: ACETAMINOPHEN 325 MG TAB PO PRN ×2 (17:58→17:59)
[2017-12-02] MEDS ORDERED: oxyCODONE IR 5 MG TAB PO PRN (17:58)
[2017-12-02] MEDS ORDERED: ONDANSETRON 4 MG/2 ML VIAL IVP PRN (17:59)
[2017-12-02] MEDS ORDERED: ONDANSETRON DISINTEGRATING 4 MG TAB PO PRN (17:59)
[2017-12-02] MEDS ORDERED: ALBUTEROL 3 ML DEYVIAL IH PRN (17:59)
[2017-12-02] MEDS ORDERED: PROTOCOL MAGNESIUM 1 DOSE IV PRN (18:01)
[2017-12-02] MEDS ORDERED: PROTOCOL POTASSIUM 1 DOSE MISC PRN (18:01)
--- NOTE | 2017-12-02 18:20 | PDGENHP ---
History and Physical - Chief Complaint bleeding from mouth - History of Present Illness The patient is a 47-year-old male with a recent diagnosis of pulmonary embolus , discharge from the hospital on 11/17/2017. He is currently taking Lovenox and warfarin. Since Thursday he has had increased bleeding from his mouth. This is from multiple locations. He states he is unable to sleep because of the amount of blood that is "oozing out."He is not lightheaded or dizzy. He has no chest pain. No new shortness of breath. He is not having any other bruising or bleeding reported. INR is 4.7 Hgb is 17.6 K is 2.9, was given 60 meq in the E.D Past Medical/Surgical History: Includes hypertension, DVT, pulmonary embolus, alcohol dependence, thrombophlebitis, lower lobe nodule, nicotine dependence, pleural effusion Past surgical history: Orthopedic surgery, appendectomy, ear tubes Social history: The patient smokes, daily ETOH FmHx: NC History Information - Allergies/Home Medication List Allergies/Adverse Reactions: No Known Allergies Allergy (Verified 12/02/17 15:48) Home Medications: Enoxaparin [Lovenox 150 MG (*)] 120 mg SC BID 12/02/17 [Last Taken 12/02/17 06: 30] I have personally reviewed and updated: medical history, social history - Social History Smoking Status: Light smoker Review of Systems Review of Systems: ROS: 10pt was reviewed & negative except for what was stated in HPI & below Physical Exam Physical Exam: Temp Pulse Resp BP Pulse Ox 37 C 107 H 16 120/87 H 95 12/02/17 15:49 12/02/17 18:00 12/02/17 18:00 12/02/17 18:00 12/02/17 18:00 Constitutional: no apparent distress Eyes: PERRL, EOMI Ears, Nose, Mouth, Throat: moist mucous membranes, hearing normal, ears appear normal, other (bleeding from gums) Cardiovascular: regular rate and rhythym, No edema Respiratory: reduced air movement Gastrointestinal: normoactive bowel sounds, soft, non-tender abdomen Skin: warm Musculoskeletal: full muscle strength Neurologic: AAOx3 Psychiatric: interacting appropriately, not anxious Lymph, Heme, Immunologic: No petechiae Lab Data & Imaging Review 12/02/17 16:00 12/02/17 16:00 WBC 10.91 10^3/uL (3.80-9.50) H 12/02/17 16:00 RBC 4.85 10^6/uL (4.40-6.38) 12/02/17 16:00 Hgb 17.6 g/dL (13.7-17.5) H 12/02/17 16:00 Hct 48.7 % (40.0-51.0) 12/02/17 16:00 MCV 100.4 fL (81.5-99.8) H 12/02/17 16:00 MCH 36.3 pg (27.9-34.1) H 12/02/17 16:00 MCHC 36.1 g/dL (32.4-36.7) 12/02/17 16:00 RDW 14.4 % (11.5-15.2) 12/02/17 16:00 Plt Count 313 10^3/uL (150-400) 12/02/17 16:00 MPV 9.6 fL (8.7-11.7) 12/02/17 16:00 Neut % (Auto) 43.4 % (39.3-74.2) 12/02/17 16:00 Lymph % (Auto) 36.7 % (15.0-45.0) 12/02/17 16:00 [place] % (Auto) 7.3 % (4.5-13.0) 12/02/17 16:00 Eos % (Auto) 11.0 % (0.6-7.6) H 12/02/17 16:00 Baso % (Auto) 1.1 % (0.3-1.7) 12/02/17 16:00 Nucleat RBC Rel Count 0.0 % (0.0-0.2) 12/02/17 16:00 Absolute Neuts (auto) 4.74 10^3/uL (1.70-6.50) 12/02/17 16:00 Absolute Lymphs (auto) 4.00 10^3/uL (1.00-3.00) H 12/02/17 16:00 Absolute Monos (auto) 0.80 10^3/uL (0.30-0.80) 12/02/17 16:00 Absolute Eos (auto) 1.20 10^3/uL (0.03-0.40) H 12/02/17 16:00 Absolute Basos (auto) 0.12 10^3/uL (0.02-0.10) H 12/02/17 16:00 Absolute Nucleated RBC 0.00 10^3/uL (0-0.01) 12/02/17 16:00 Immature Gran % 0.5 % (0.0-1.1) 12/02/17 16:00 Immature Gran # 0.05 10^3/uL (0.00-0.10) 12/02/17 16:00 PT 45.6 SEC (12.0-15.0) H 12/02/17 16:00 INR 4.97 (0.83-1.16) H 12/02/17 16:00 APTT 97.4 SEC (23.0-38.0) H 12/02/17 16:00 Sodium 147 mEq/L (135-145) H 12/02/17 16:00 Potassium 2.9 mEq/L (3.5-5.2) L 12/02/17 16:00 Chloride 108 mEq/L (97-110) 12/02/17 16:00 Carbon Dioxide 20 mEq/l (22-31) L 12/02/17 16:00 Anion Gap 19 mEq/L (8-16) H 12/02/17 16:00 BUN 6 mg/dL (7-23) L 12/02/17 16:00 Creatinine 0.7 mg/dL (0.7-1.3) 12/02/17 16:00 Estimated GFR > 60 12/02/17 16:00 Glucose 125 mg/dL (70-100) H 12/02/17 16:00 Calcium 8.6 mg/dL (8.5-10.4) 12/02/17 16:00 Assessment & Plan Assessment: #Coagulopathy, medication induced, was taking both Warfarin and Lovenox due to lack of follow up -INR on admission is 4.97 -Bleeding from gums -Hold off on reversal given mild bleed affecting gums only -Hold Lovenox -Hold Coumadin, will restart once INR is therapeutic -No need for PRBC -Neuro calvo intact #Hx of P.E and DVT, needs lifelong AC #Daily ETOH and ETOH dependance -Ativan as needed -not in active WD #Hypokalemia, replaced in the E.D -replace per protocol -check magnesium full code
[2017-12-02] MEDS: VALSARTAN 40 MG TAB PO SCH (19:49)
[2017-12-02] MEDS ORDERED: POTASSIUM CL 10 MEQ TAB PO ONE (22:00)
[2017-12-03 04:14] LABS: PLATELET COUNT 234 10^3/uL (150-400)
[2017-12-03 04:19] LABS: INR 4.86 (0.83-1.16); PROTIME(PATIENT) 44.8 SEC (12.0-15.0)
[2017-12-03] MEDS: VALSARTAN 40 MG TAB PO SCH (08:19)
[2017-12-03 08:24] VITALS: BP 175/103; PULSE 82; RESP 18; TEMP 97.7; O2SAT 97
[2017-12-03] MEDS ORDERED: MAGNESIUM SULF 1 GM/DEXTROSE 100 ML IV ONE (08:56)
[2017-12-03] MEDS ORDERED: SERTRALINE HCL 100 MG TAB PO SCH (09:00)
--- NOTE | 2017-12-03 10:24 | ASMTCAGE ---
CAGE Do you feel you ought to Answers: Yes cut down on your drinking or drug use? Do people annoy you by Answers: Yes criticizing your drinking or drug use? Do you feel guilty about Answers: Yes your drinking or drug use? Do you drink or use drugs Answers: No first thing in the morning ([employer])? Date Signed: 12/03/2017 10:24 AM Electronically Signed By:JOSHUA Priest
--- NOTE | 2017-12-03 10:24 | ASMTCASEMG ---
Living Arrangements What is your living Answers: Alone arrangement? Who do you live with? Type Of Residence Type of Residence Facility Name Notes: Lives in a Trailer Home Discharge Plan Comments Coordination Status Comments Notes: CM spoke w/ JERMAINE Kearns regarding d/c POC. Pt is a 47 y/o man admitted for coagulopathy. CM met w/ pt for dispo planning. Pt drinks ETOH daily. Pt reports that he drinks a couple glasses of schnapps a night. Pt reports that he has thought about quitting ETOH. CM provided pt w/ ETOH resources. Pt will most likely not have any d/c needs. No therapies ordered at this time. Pt reports that he is waiting for his INR to drop. Pt reports that during his last hospitalization here at [facility] he was prescribed lovanox. Pt reports that he was unaware that he should have stop taking his lovanox after a few days. CM available for changes. Plan: Independent Date Signed: 12/03/2017 10:23 AM Electronically Signed By:JOSHUA Priest
--- NOTE | 2017-12-03 13:37 | PDDCSUM ---
Discharge Summary Discharge Summary: This is a 47 you male with hx of DVT and PE who has been started on both Coumadin and Lovenox for AC who did not get follow up and continued taking both medications. He presented to the E.D. with gum bleeding, but overall hemodynamically stable. INR was 4.97, he was not reversed. Lovenox was stopped. Coumadin held. Kept overnight with resolution of the bleeding. INR on d/c is 4.86. The plan is for d/c. the soonest he is able to get f/u with a new PCP is on Thursday. CM has set this up and is providing details for him. He will not be sent on a Coumadin dose as I don't know what his dose will be going forward. His previous dose was 5mg daily and this dose contributed to the coagulopathy. DDX #Coagulopathy, medication induced, was taking both Warfarin and Lovenox due to lack of follow up -INR on admission is 4.97 -Bleeding from gums -Hold off on reversal given mild bleed affecting gums only -Hold Lovenox -Hold Coumadin, will restart once INR is therapeutic -No need for PRBC -Neuro calvo intact #Hx of P.E and DVT, needs lifelong AC #Daily ETOH and ETOH dependance -Ativan as needed -not in active WD #Hypokalemia, replaced in the E.D -replace per protocol -check magnesium EXAM: NO FURTHER GUM BLEEDING RRR CTA B S/NT/ND MEDS: SEE MED REC F/U: TO ESTABLISH PT WITH PCP ON THURSDAY TOTAL TIME SPENT ON D/C INCLUDING COORDINATION WITH NURSE AND CM IS 40 MINS
== END 2017-12-03 14:31 | disposition home or self-care (01) ==
LOC: F2W 18:20
PROVIDERS: ADMIT Student in an Organized Health Care Education/Training Program; ATTEND Family Medicine
DX: D68.32 Hemorrhagic disorder due to extrinsic circulating anticoagulants (principal); Z86.718 Personal history of other venous thrombosis and embolism; Z86.711 Personal history of pulmonary embolism; Z79.01 Long term (current) use of anticoagulants; F10.20 Alcohol dependence, uncomplicated; E78.6 Lipoprotein deficiency; F17.210 Nicotine dependence, cigarettes, uncomplicated; I10 Essential (primary) hypertension
CPT/HCPCS: G0378 ×2; 96374; J2405; J3475

== ENCOUNTER 2018-02-18 16:09 | Inpatient (IN) | payer MEDICAID ==
--- NOTE | 2018-02-18 16:25 | CPEKG ---
Heart Rate: 99 RR Interval: 606 P-R Interval: 172 QRSD Interval: 108 QT Interval: 392 QTC Interval: 504 P Universal: 50 QRS Universal: 56 T Wave Universal: 34 EKG Severity - ABNORMAL ECG - EKG Impression: SINUS RHYTHM EKG Impression: BORDERLINE INFERIOR Q WAVES EKG Impression: PROLONGED QT INTERVAL Electronically Signed By: Prachi Florez 18-Feb-2018 23:08:07
[2018-02-18] MEDS ORDERED: NS 500 ML IV ONE (16:35)
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
[2018-02-18 16:47] LABS: PLATELET COUNT 254 10^3/uL (150-400)
[2018-02-18] MEDS ORDERED: NS 1,000 ML IV ONE ×2 (17:09→18:19)
[2018-02-18 17:12] LABS: INR 1.87 (0.83-1.16); PROTIME(PATIENT) 21.6 SEC (12.0-15.0)
[2018-02-18] MEDS ORDERED: ENOXAPARIN 150 MG/ML SYR SC ONE (17:38)
[2018-02-18] MEDS ORDERED: FLUMAZENIL 0.5 MG/5 ML MDV IVP PRN (18:22)
[2018-02-18] MEDS: NS 1,000 ML IV SCH (20:14)
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
[2018-02-18] MEDS: FAMOTIDINE 20 MG/NACL 50 ML IV SCH (21:18)
[2018-02-18] MEDS: LORazepam 2 MG/ML INJ IVP PRN (21:21)
[2018-02-18] MEDS ORDERED: PROMETHAZINE HCL 25 MG/ML INJ IVP PRN (21:48)
[2018-02-19] MEDS: NS 1,000 ML IV SCH ×2 (02:00→07:05)
[2018-02-19] MEDS: ACETAMINOPHEN 325 MG TAB PO PRN ×2 (03:44→10:37)
[2018-02-19] MEDS: LORazepam 2 MG/ML INJ IVP PRN (03:50)
[2018-02-19 04:20] LABS: PLATELET COUNT 163 10^3/uL (150-400)
[2018-02-19 04:24] LABS: INR 2.38 (0.83-1.16)
[2018-02-19] MEDS ORDERED: traMADol 50 MG TAB PO ONE (06:28)
[2018-02-19] MEDS: FAMOTIDINE 20 MG/NACL 50 ML IV SCH (08:35)
[2018-02-19] MEDS ORDERED: THIAMINE HCL 500 MG in NS 100 ML IV SCH (09:00)
[2018-02-19] MEDS ORDERED: WARFARIN SODIUM 5 MG TAB PO SCH (09:00)
--- NOTE | 2018-02-19 09:32 | ASMTCAGE ---
CAGE Do you feel you ought to Answers: Yes cut down on your drinking or drug use? Do people annoy you by Answers: Yes criticizing your drinking or drug use? Do you feel guilty about Answers: No your drinking or drug use? Do you drink or use drugs Answers: Yes first thing in the morning ([employer])? Date Signed: 02/19/2018 09:31 AM Electronically Signed By:Ileana Camara RN
--- NOTE | 2018-02-19 09:46 | HOSPPROG ---
Hospitalist Progress Note Assessment/Plan: 47 yo M w recurrent VTE and alcohol dependence here w syncope, BRYON BRYON: hypovolemic improving OK to dc IVF ? recurrent VTE: inr subtherapeutic on admit, now >[address] vs awaiting echo 1. await echo 2. repeat CT angio if markedly abnormal PA pressures alcohol dependence: denies withdrawal sx coccyx pain: no fracture on films dispo: pending Subjective: tele: no events (interp by me). ekg non ischemic (interp by me) Objective: Vital Signs Temp Pulse Resp BP Pulse Ox 37.0 C 66 18 126/106 H 99 02/19/18 07:40 02/19/18 07:40 02/19/18 07:40 02/19/18 07:40 02/19/18 07:40 Laboratory Results 02/19/18 04:09 02/19/18 04:09 02/18/18 02/19/18 02/20/18 05:59 05:59 05:59 Intake Total 5950 Balance 5950 PT 26.0 SEC (12.0-15.0) H 02/19/18 04:09 INR 2.38 (0.83-1.16) H 02/19/18 04:09 - Physical Exam Constitutional: no apparent distress, appears nourished Eyes: PERRL, anicteric sclera Ears, Nose, Mouth, Throat: moist mucous membranes, hearing normal Cardiovascular: regular rate and rhythym, no murmur, rub, or gallop, No systolic murmur Respiratory: no respiratory distress, no rales or rhonchi Gastrointestinal: normoactive bowel sounds, soft, non-tender abdomen Genitourinary: No harris in urethra Skin: warm, normal color, mottled Musculoskeletal: full muscle strength, no muscle tenderness Neurologic: AAOx3 Psychiatric: interacting appropriately ICD10 Worksheet Patient Problems: Problems Problem Status Onset Alcohol intoxication Acute Coccyx pain Acute Hypotension Acute Recurrent syncope Acute Renal insufficiency Acute Subtherapeutic international normalized ratio (INR) Acute Coagulopathy Acute Laceration of forearm, left, complicated Acute Polysubstance abuse Acute Pulmonary embolism Acute Suicide attempt by method other than substance overdose Acute
[2018-02-19] MEDS ORDERED: IOPAMIDOL (ISOVUE 370) 100 ML BTL IV ONE (10:55)
[2018-02-19 15:39] VITALS: BP 154/102
--- NOTE | 2018-02-19 16:18 | ECHO ---
[email or web address] [address] [address] Main: [phone] Fax: Transthoracic Echocardiogram Name: SHIRLEY MOSLEY MR#: [id number] Study Date: 02/19/2018 Study Time: 10:08 AM Date of : 1970 Age: 47 year(s) Height: 188 cm (74 in.) Weight: 131.54 kg (290 lb.) BSA: 2.54 m2 Gender: Male Examination: Echo Indication: recurrent syncope Image Quality: Technically Difficult Contrast: Requested by: Leonel Fischer BP: 126 mmHg/106 mmHg Heart Rate: Rhythm: Normal sinus rhythm Indication: recurrent syncope Procedure Staff Fur Drummer: Beth Sykes [facility] Reading Physician: Joann Orozco MD Requesting Provider: Héctor Hair Conclusions: Normal size left ventricle. Mild concentric LV hypertrophy. Normal global systolic LV function. EF is 67 %. Normal diastolic LV function. Normal size right ventricle. Normal RV function. Lipomatous interatrial septum. No significant valvular disease. No significant change compared with 11/16/2017. Measurements: Chambers Valvular Assessment AV/MV Valvular Assessment TV/PV Normal Normal Normal Name Value Range Name Value Range Name Value Range Ao Gretchen (2D): 3.8 cm (1.4 cm-2.6 AV Vmax: 1.29 m/s (1 m/s-1.7 PV Vmax: 0.74 m/s (0.6 m/s-0.9 cm) m/s) m/s) IVSd (2D): 1.1 cm (0.6 cm-1.1 AV maxP mmHg ( - ) PV PGmax: 2 mmHg ( - ) cm) LVOT Vmax: 1.21 m/s (0.7 m/s-1.1 LVDd (2D): 4.3 cm (4.2 cm-5.9 m/s) cm) MV E Vmax: 0.83 m/s ( - ) LVDs (2D): 2.3 cm (2.1 cm-4 MV A Vmax: 0.53 m/s ( - ) cm) MV E/A: 1.57 ( - ) LVPWd (2D): 1.0 cm (0.6 cm-1 cm) LVEF (BP): 67 % (>=55 %) RVDd(2D): 3.8 cm (1.9 cm-3.8 cmmm) Continued Measurements: Patient: SHIRLEY MOSLEY Study Date: 02/19/2018 Page 1 of 2 10:08 AM Chambers Valvular Assessment AV/MV Name Value Name Value LADs: 3.5 cm MV DecTime: 148 m/s LADs Lon.3 cm MV E' Septal: 0.11 m/s LA Area: 20.9 cm2 MV E/E' Septal: 7.70 LA Volume: 66 ml MV E/E' Lateral: 7.60 LA Volume Index: 26.0 ml/m2 TAPSE: 2.2 cm RA Area: 11.7 cm2 Additional Vessels Name Value Ao Ascendin.0 cm Findings: Left Ventricle: Normal size left ventricle. Mild concentric LV hypertrophy. Normal global systolic LV function. EF is 67 %. No regional wall motion abnormality. Normal diastolic LV function. Right Ventricle: Normal size right ventricle. Normal RV function. Left Atrium: The left atrium is normal in size. Right Atrium: The right atrium is normal in size. Lipomatous interatrial septum. Mitral Valve: The mitral valve is normal in appearance and function. There is no mitral valve regurgitation. No mitral stenosis is present. Aortic Valve: The aortic valve is tri-leaflet and functions normally. There is no aortic valve regurgitation. No aortic valve stenosis is present. Tricuspid Valve: The tricuspid valve is normal in appearance and function. There is no tricuspid valve regurgitation. Pulmonary artery pressure is not obtained due to inadequate TR jet. Pulmonic Valve: Pulmonary valve not well visualized. Aorta: Normal size aortic root measuring 3.8 cm. Mildly dilated ascending aorta measuring 4.0 cm. IVC: The IVC is normal sized. Pericardium: No pericardial effusion. There is pericardial fat. (No Signature Object) Patient: SHIRLEY MOSLEY Study Date: 02/19/2018 Page 2 of 2 10:08 AM [id number]
--- NOTE | 2018-02-19 16:48 | PDMN ---
Medical Necessity Medical necessity: C/M review: est. > 2 MN LOS for eval and TX of acute syncope , acute kidney injury, pauses on monitor technician, subtheraputic INR on admit - now > 2, coccyx - no fracture on films, requiring CTA chest, echocardiogram, IV fluids 02/18/2018 to 02/19/2018, IV Thiamine daily x 3 doses, planned Cardiology consult, ongoing cardiac monitoring, pulse oximetry, supplemental O2 , CIWA protocol, comorbid history of venous thromboembolism, alcohol dependence - patient denies withdrawal symptoms per 02/19/2018 Hospitalist progress note.
--- NOTE | 2018-02-19 17:03 | GDS ---
[f rep st] DISCHARGE SUMMARY DISCHARGE DIAGNOSES: 1. Syncope. 2. History of recurrent venous thromboembolic disease. 3. Hypertension. 4. Alcohol dependence. 5. Hypernatremia. Please see admission history and physical by Dr. Leonel Fischer MD. The patient presented with synco pe, somewhat concerning story. He had negative troponins and nonischemic EKG. He had evidence of vo lume depletion as demonstrated by acute kidney injury. He had a subtherapeutic INR at 1.9. He had a CTA negative for chest. He had an echocardiogram that was normal. He was followed on telemetry, an d other than sinus arrhythmia, there were no bradycardic or tachycardic events that would be causativ e for syncope given his fall. He had sacrum, coccyx and lumbar spine films that were all negative fo r fracture. The patient was anxious for discharge. He did not have alcohol withdrawal. /[id number]/MODL
--- NOTE | 2018-02-19 17:08 | ASMTCMCOM ---
CM Note CM Note Notes: Chart reviewed. Patient 47 year old male with hx significant for HTN and PE admitted after sycopal episode at home. He does use alcohol. CAGE done but patient declines need for resources at this time. No current needs identified. CM availble should needs change. Plan: Home independent Date Signed: 02/19/2018 09:38 AM Electronically Signed By:Ileana Camara RN
--- NOTE | 2018-02-19 17:08 | ASMTLACE ---
LACE Length of stay for Answers: Less than 1 day current admission Acuity / Level of Answers: No Care: Did the patient have an inpatient admission? Comorbidities - select Answers: Other Notes: pulmonary emboli all that apply # of Emergency department Answers: 1-2 visits in the last 6 months Social determinants Answers: History of substance abuse (ETOH, street drugs, prescription drugs, etc.) Lack of community resources and/or lack of social support (no pcp, lives alone, transportation, violetta d) Score: 9 Date Signed: 02/19/2018 05:07 PM Electronically Signed By:Ileana Camara RN
[2018-02-19] MEDS ORDERED: FAMOTIDINE 20 MG TAB PO SCH (21:00)
[2018-02-20] MEDS ORDERED: WARFARIN SODIUM 5 MG TAB PO SCH (09:00)
[2018-02-21] MEDS ORDERED: THIAMINE HCL 100 MG TAB PO SCH (18:22)
== END 2018-02-19 17:35 | disposition home or self-care (01) | DRG 204 ==
LOC: INTOOBSV 17:40 → OBSVTOIN 17:40 → UNDOADMIN 17:40 → F2W 19:40 → UNDODISIN 02-19 17:35
PROVIDERS: ADMIT Internal Medicine; ATTEND Internal Medicine
DX: R55 Syncope and collapse (principal); N17.9 Acute kidney failure, unspecified; E87.0 Hyperosmolality and hypernatremia; I10 Essential (primary) hypertension; F10.220 Alcohol dependence with intoxication, uncomplicated; F17.200 Nicotine dependence, unspecified, uncomplicated; M54.5 Low back pain; E86.1 Hypovolemia; Y90.8 Blood alcohol level of 240 mg/100 ml or more; Z86.718 Personal history of other venous thrombosis and embolism; Z86.711 Personal history of pulmonary embolism
CPT/HCPCS: G0378; G0480; J1650; J2060; J3411; Q9967

== ENCOUNTER → 2018-03-18 | Outpatient (CLI) | payer MEDICAID | LOC: FIMAGING 14:32 | PROVIDERS: ATTEND Psychiatry & Neurology Neurology | DX: R90.82 White matter disease, unspecified (principal) ==

== ENCOUNTER → 2018-03-26 | Outpatient (CLI) | payer MEDICAID ==
--- NOTE | 2018-03-26 14:01 | CPEEG ---
[f rep st] ELECTROENCEPHALOGRAM DATE OF STUDY: 03/26/2018 INTERPRETATION: Normal EEG during wakefulness and sleep. There were no potentially epileptogenic ab normalities present in the recording. REPORT: This EEG contains 10 Hz alpha activity over the posterior head regions. There was no abnorm al activation at rest, during photic stimulation or hyperventilation. The patient became drowsy and fell asleep during the study. There was no abnormal activation during drowsiness, sleep, or during t imes of arousal. /[id number]/MODL
== END ==
LOC: FCPNEURO 11:43
PROVIDERS: ATTEND Psychiatry & Neurology Neurology
DX: R40.20 Unspecified coma (principal)